=== PATIENT | female | born 1950 | race American Indian/Alaskan Native ===

== ENCOUNTER 2017-05-01 15:49 | Emergency (ER) | payer OTHER ==
[2017-05-01 16:25] VITALS: BP 154/98
--- NOTE | 2017-05-01 17:09 | EDM.PDOC ---
ED HPI GENERAL MEDICAL PROBLEM - General Chief Complaint: Abdominal Pain Stated Complaint: RT SIDED SEVERE PAINS, [id number] Time Seen by Provider: 05/01/17 16:45 Source of Information: Reports: Patient History Limitations: Reports: No Limitations - History of Present Illness INITIAL COMMENTS - FREE TEXT/NARRATIVE: This 67 yo female patient reports to the ED with right lower abdominal pain. The patient reports her pain started about 3 days ago and has been intermittent since that time. The patient reports increase pain when she walks. The patient does report that she was moving furniture on Sunday, just before the pain started. The patient reports she has been taking Tylenol for temporary symptom relief. The patient has not been seen by her primary care facility. 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 Right Lower Abdomen Pain Score (Numeric/FACES): 8 - Related Data Allergies Allergy/AdvReac Type Severity Reaction Status Date / Time chocolate flavor Allergy Hives Verified 05/01/17 16:07 diazepam [From Valium] Allergy Confusion Verified 05/01/17 16:07 diphenhydramine Allergy Confusion Verified 05/01/17 16:07 [From Benadryl] kiwi Allergy Blisters Verified 05/01/17 16:07 lisinopril [From Prinivil] Allergy Swollen Verified 05/01/17 16:07 Tongue metformin [From Glucophage] Allergy Cough Verified 05/01/17 16:07 pantoprazole Allergy Other Verified 05/01/17 16:07 pineapple Allergy Blisters Verified 05/01/17 16:07 BEE VENOM Allergy Swelling Uncoded 05/01/17 16:07 Home Meds: Home Meds Acetaminophen [Tylenol Extra Strength] 1,000 mg PO Q6H PRN 04/28/16 [History] Aspirin [Halfprin] 81 mg PO DAILY 04/28/16 [History] Calcium Citrate/Vitamin D3 [Calcium Citrate + D] 1 tab PO BIDMEALS 04/28/16 [ History] Cholecalciferol (Vitamin D3) [Vitamin D3] 1 cap PO DAILY 04/28/16 [History] Famotidine 20 mg PO BID 04/28/16 [History] Insulin Aspart [Novolog Flexpen] 10 units SQ TID 04/28/16 [History] Insulin Detemir [Levemir Flextouch] 45 unit SQ BEDTIME 04/28/16 [History] Isosorbide Mononitrate [Imdur] 30 mg PO DAILY 04/28/16 [History] Loratadine [Claritin] 10 mg PO DAILY 04/28/16 [History] Losartan [Cozaar] 100 mg PO DAILY 04/28/16 [History] Multivitamin [Multivitamins] 1 cap PO .EVERYOTHERDAY 04/28/16 [History] atorvaSTATin [Lipitor] 10 mg PO DAILY 04/28/16 [History] Past Medical History HEENT History: Reports: Cataract, Impaired Vision Other HEENT History: wears glasses Cardiovascular History: Reports: High Cholesterol, Hypertension Respiratory History: Reports: None Gastrointestinal History: Reports: GERD, Hiatal Hernia Other Gastrointestinal History: SCHATZKI'S RING 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 History: Reports: Chronic Renal Insuffiency 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: Musculoskeletal History: Reports: Other (See Below) Other Musculoskeletal History: FRACTURED LEFT ANKLE X3 Neurological History: Reports: None Psychiatric History: Reports: None Endocrine/Metabolic History: Reports: Diabetes, Type II Hematologic History: Reports: None Immunologic History: Reports: None Oncologic (Cancer) History: Reports: None Dermatologic History: Reports: None - Infectious Disease History Infectious Disease History: Reports: Chicken Pox, Measles, Mumps - Past Surgical History Head Surgeries/Procedures: Reports: None HEENT Surgical History: Reports: Cataract Surgery Cardiovascular Surgical History: Reports: Coronary Artery Stent GI Surgical History: Reports: EGD, Esophageal Dilatation Musculoskeletal Surgical History: Reports: Arthroscopic Knee Social & Family History - Family History Family Medical History: Noncontributory Cardiac: Reports: High Cholesterol, Hypertension, [place] : Reports: Dialysis Musculoskeletal: Reports: Arthritis Endocrine/Metabolic: Reports: Diabetes, type II Oncologic: Reports: Lung - Tobacco Use Smoking Status *Q: Never Smoker Second Hand Smoke Exposure: No - Caffeine Use Caffeine Use: Reports: Coffee - Recreational Drug Use Recreational Drug Use: No ED ROS GENERAL - Review of Systems Review Of Systems: ROS reveals no pertinent complaints other than HPI. ED EXAM, GI/ABD - Physical Exam Exam: See Below Exam Limited By: No Limitations General Appearance: Alert, WD/WN, Mild Distress, Obese Eyes: Bilateral: Normal Appearance, EOMI Ears: Normal External Exam, Normal Canal, Hearing Grossly Normal, Normal TMs Nose: Normal Inspection, Normal Mucosa, No Blood Throat/Mouth: Normal Inspection, Normal Lips, Normal Teeth, Normal Gums, Normal Oropharynx, Normal Voice, No Airway Compromise Head: Atraumatic, Normocephalic Neck: Normal Inspection, Supple, Non-Tender, Full Range of Motion Respiratory/Chest: No Respiratory Distress, Lungs Clear, Normal Breath Sounds, No Accessory Muscle Use, Chest Non-Tender Cardiovascular: Normal Peripheral Pulses, Regular Rate, Rhythm, No Edema, No Gallop, No JVD, No Murmur, No Rub GI/Abdominal Exam: Normal Bowel Sounds, Soft, Tender (right lower abdomen (very low into the right groin)), Other (no evidence of hernia) (Female) Exam: Deferred Rectal (Female) Exam: Deferred Back Exam: Normal Inspection, Full Range of Motion, NT Extremities: Normal Inspection, Normal Range of Motion, Non-Tender, Normal Capillary Refill, No Pedal Edema Neurological: Alert, Oriented, CN II-XII Intact, Normal Cognition, Normal Gait, Normal Reflexes, No Motor/Sensory Deficits Psychiatric: Normal Affect, Normal Mood Skin Exam: Warm, Dry, Intact, Normal Color, No Rash Lymphatic: No Adenopathy Course - Vital Signs Last Recorded V/S: Last Vital Signs Temp 36.2 C 05/01/17 16:22 Pulse 67 05/01/17 16:22 Resp 18 05/01/17 16:22 BP 154/98 H 05/01/17 16:22 Pulse Ox 100 05/01/17 16:22 - Orders/Labs/Meds Orders: Active Orders 24 hr Category Date Time Status UA W/MICROSCOPIC [URIN] Stat Lab 05/01/17 17:04 Received Orphenadrine [Norflex] Med 05/01/17 17:30 Ordered 60 mg IM Q12H Medication Orders Orphenadrine Citrate (Norflex) 60 mg IM Q12H RAMONA Labs: Laboratory Tests 05/01/17 05/01/17 05/01/17 Range/Units 16:39 16:39 16:39 WBC 6.3 (5.0-10.0) 10^3/uL RBC 4.26 (4.2-5.4) 10^6/uL Hgb 12.2 (12.0-16.0) g/dL Hct 36.5 L (37.0-47.0) % MCV 85.7 (80-100) fL MCH 28.6 (27.0-34.0) pg MCHC 33.4 (33.0-35.0) g/dL Plt Count 203 (150-450) 10^3/uL Neut % (Auto) 68.7 (42.2-75.2) % Lymph % (Auto) 20.4 L (20.5-50.1) % [place] % (Auto) 6.9 (2-8) % Eos % (Auto) 3.4 H (1.0-3.0) % Baso % (Auto) 0.6 (0.0-1.0) % Sodium 134 L (135-145) mmol/L Potassium 3.9 (3.6-5.0) mmol/L Chloride 98 L (101-111) mmol/L Carbon Dioxide 24.0 (21.0-31.0) mmol/L Anion Gap 15.9 BUN 21 H (7-18) mg/dL Creatinine 1.2 (0.6-1.3) mg/dL Est Cr Clr Drug Dosing 34.80 mL/min Estimated GFR (MDRD) 45 BUN/Creatinine Ratio 17.50 Glucose 186 H (74-105) mg/dL Calcium 9.3 D (8.4-10.2) mg/dl Total Bilirubin 0.7 (0.2-1.0) mg/dL AST 32 (10-42) IU/L ALT 31 (10-60) IU/L Alkaline Phosphatase 100 (42-121) IU/L Total Protein 7.8 (6.7-8.2) g/dl Albumin 3.7 (3.2-5.5) g/dl Globulin 4.1 Albumin/Globulin Ratio 0.90 Amylase 29 (28-100) U/L Lipase 27 (22-51) U/L Urine Opiates Screen (NEGATIVE) Ur Oxycodone Screen (NEGATIVE) Urine Methadone Screen (NEGATIVE) Ur Barbiturates Screen (NEGATIVE) U Tricyclic Antidepress (NEGATIVE) Ur Phencyclidine Scrn (NEGATIVE) Ur Amphetamine Screen (NEGATIVE) U Methamphetamines Scrn (NEGATIVE) Urine MDMA Screen (NEGATIVE) U Benzodiazepines Scrn (NEGATIVE) Urine Cocaine Screen (NEGATIVE) U Marijuana (THC) Screen (NEGATIVE) 05/01/17 Range/Units 17:04 WBC (5.0-10.0) 10^3/uL RBC (4.2-5.4) 10^6/uL Hgb (12.0-16.0) g/dL Hct (37.0-47.0) % MCV (80-100) fL MCH (27.0-34.0) pg MCHC (33.0-35.0) g/dL Plt Count (150-450) 10^3/uL Neut % (Auto) (42.2-75.2) % Lymph % (Auto) (20.5-50.1) % [place] % (Auto) (2-8) % Eos % (Auto) (1.0-3.0) % Baso % (Auto) (0.0-1.0) % Sodium (135-145) mmol/L Potassium (3.6-5.0) mmol/L Chloride (101-111) mmol/L Carbon Dioxide (21.0-31.0) mmol/L Anion Gap BUN (7-18) mg/dL Creatinine (0.6-1.3) mg/dL Est Cr Clr Drug Dosing mL/min Estimated GFR (MDRD) BUN/Creatinine Ratio Glucose (74-105) mg/dL Calcium (8.4-10.2) mg/dl Total Bilirubin (0.2-1.0) mg/dL AST (10-42) IU/L ALT (10-60) IU/L Alkaline Phosphatase (42-121) IU/L Total Protein (6.7-8.2) g/dl Albumin (3.2-5.5) g/dl Globulin Albumin/Globulin Ratio Amylase (28-100) U/L Lipase (22-51) U/L Urine Opiates Screen Negative (NEGATIVE) Ur Oxycodone Screen Negative (NEGATIVE) Urine Methadone Screen Negative (NEGATIVE) Ur Barbiturates Screen Negative (NEGATIVE) U Tricyclic Antidepress Negative (NEGATIVE) Ur Phencyclidine Scrn Negative (NEGATIVE) Ur Amphetamine Screen Negative (NEGATIVE) U Methamphetamines Scrn Negative (NEGATIVE) Urine MDMA Screen Negative (NEGATIVE) U Benzodiazepines Scrn Negative (NEGATIVE) Urine Cocaine Screen Negative (NEGATIVE) U Marijuana (THC) Screen Negative (NEGATIVE) Meds: Medications Generic Name Dose Route Start Last Admin Trade Name Freq PRN Reason Stop Dose Admin Orphenadrine Citrate 60 mg 05/01/17 17:30 Norflex IM Q12H RAMONA Discontinued Medications Generic Name Dose Route Start Last Admin Trade Name Trudy PRN Reason Stop Dose Admin Ketorolac Tromethamine 30 mg 05/01/17 17:26 Toradol IM 05/01/17 17:27 ONETIME ONE Departure - Departure Time of Disposition: 17:29 Disposition: Home, Self-Care 01 Condition: Fair Clinical Impression: Abdominal wall strain Qualifiers: Encounter type: initial encounter Qualified Code(s): S39.011A - Strain of muscle, fascia and tendon of abdomen, initial encounter - Discharge Information Instructions: Muscle Strain, [id number] Forms: ED Department Discharge Care Plan Goals: The patient was advised of the examination and lab results during the visit. The patient was given an injection of Toradol (60 mg) and Norflex (60 mg) while in the ED. The patient was discharged with a script for Toradol (10 mg) #20 to take 1 by mouth every 6 hours and Flexeril (10 mg) #10 to take 1 by mouth at bedtime as needed. The patient may continue to take Tylenol as directed for temporary symptom relief. If the patient has any additional symptoms or further concerns, the patient should either follow-up with her primary care facility or return to the emergency department. - My Orders Last 24 Hours: My Active Orders 05/01/17 17:04 UA W/MICROSCOPIC [URIN] Stat 05/01/17 17:30 Orphenadrine [Norflex] 60 mg IM Q12H - Assessment/Plan Last 24 Hours: My Active Orders 05/01/17 17:04 UA W/MICROSCOPIC [URIN] Stat 05/01/17 17:30 Orphenadrine [Norflex] 60 mg IM Q12H
[2017-05-01] MEDS ORDERED: Ketorolac 30 MG/ML SDV IM ONE (17:26)
== END 2017-05-01 17:26 | disposition home or self-care (01) ==
LOC: DL.ED 15:49
DX: S39.011A Strain of muscle, fascia and tendon of abdomen, initial encounter (principal); E78.00 Pure hypercholesterolemia, unspecified; I12.9 Hypertensive chronic kidney disease with stage 1 through stage 4 chronic kidney disease, or unspecified chronic kidney disease; N18.9 Chronic kidney disease, unspecified; E11.22 Type 2 diabetes mellitus with diabetic chronic kidney disease; K21.9 Gastro-esophageal reflux disease without esophagitis; Z88.8 Allergy status to other drugs, medicaments and biological substances; Z91.018 Allergy to other foods; Z91.030 Bee allergy status; Z79.899 Other long term (current) drug therapy; Z79.82 Long term (current) use of aspirin; X50.9XXA Other and unspecified overexertion or strenuous movements or postures, initial encounter
CPT/HCPCS: 36415; 80053; 80305; 81001; 82150; 83690; 85025; 96372; 99284; J1885; J2360

== ENCOUNTER 2019-01-22 00:03 | Emergency (ER) | payer OTHER ==
[2019-01-22 00:55] LABS: ANION GAP 13.9
[2019-01-22] MEDS ORDERED: Aspirin 81 MG Tab.Chew PO ONE (01:20)
[2019-01-22] MEDS ORDERED: Ondansetron 4 MG/2 ML SDV IV ONE (01:26)
--- NOTE | 2019-01-22 01:29 | EDM.PDOC ---
ED HPI GENERAL MEDICAL PROBLEM - General Chief Complaint: Chest Pain Stated Complaint: CHEST PAIN AND THROWING UP [id number] Time Seen by Provider: 01/22/19 00:25 Source of Information: Reports: Patient, Family History Limitations: Reports: No Limitations - History of Present Illness INITIAL COMMENTS - FREE TEXT/NARRATIVE: ED with c/o eating lettuce sald at 2130, 2200 started vomiting x 3 and 5 loose diarrhea stools left sided chest pain sharp jabbing type started after and burning in throat. No fever, No sweating, No blood in emesis or stool. No SOB. Hx 3 cardiac stents and 1 renal stent. Left Anterior Chest Pain Score (Numeric/FACES): 5 - Related Data Allergies Allergy/AdvReac Type Severity Reaction Status Date / Time chocolate flavor Allergy Hives Verified 01/22/19 00:33 diazepam [From Valium] Allergy Confusion Verified 01/22/19 00:33 diphenhydramine Allergy Confusion Verified 01/22/19 00:33 [From Benadryl] kiwi Allergy Blisters Verified 01/22/19 00:33 lisinopril [From Prinivil] Allergy Swollen Verified 01/22/19 00:33 Tongue metformin [From Glucophage] Allergy Cough Verified 01/22/19 00:33 pantoprazole Allergy Other Verified 01/22/19 00:33 pineapple Allergy Blisters Verified 01/22/19 00:33 BEE VENOM Allergy Swelling Uncoded 01/22/19 00:33 Home Meds: Home Meds Acetaminophen [Tylenol Extra Strength] 1,000 mg PO Q6H PRN 04/28/16 [History] Aspirin [Halfprin] 81 mg PO DAILY 04/28/16 [History] Calcium Citrate/Vitamin D3 [Calcium Citrate + D] 1 tab PO BIDMEALS 04/28/16 [ History] Cholecalciferol (Vitamin D3) [Vitamin D3] 1 cap PO DAILY 04/28/16 [History] Famotidine 20 mg PO BID 04/28/16 [History] Insulin Aspart [Novolog Flexpen] 10 units SQ TID 04/28/16 [History] Insulin Detemir [Levemir Flextouch] 45 unit SQ BEDTIME 04/28/16 [History] Isosorbide Mononitrate [Imdur] 30 mg PO DAILY 04/28/16 [History] Loratadine [Claritin] 10 mg PO DAILY 04/28/16 [History] Losartan [Cozaar] 100 mg PO DAILY 04/28/16 [History] Multivitamin [Multivitamins] 1 cap PO DAILY 04/28/16 [History] atorvaSTATin [Lipitor] 10 mg PO DAILY 04/28/16 [History] Clopidogrel [Plavix] 1 tab PO DAILY 05/14/17 [History] Ibuprofen [Advil] 800 mg PO TID 05/14/17 [History] Past Medical History HEENT History: Reports: Cataract, Impaired Vision Other HEENT History: wears glasses Cardiovascular History: Reports: High Cholesterol, Hypertension Respiratory History: Reports: None Gastrointestinal History: Reports: GERD, Hiatal Hernia Other Gastrointestinal History: SCHATZKI'S RING 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 History: Reports: Chronic Renal Insuffiency 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: Musculoskeletal History: Reports: Other (See Below) Other Musculoskeletal History: FRACTURED LEFT ANKLE X3 Neurological History: Reports: None Psychiatric History: Reports: None Endocrine/Metabolic History: Reports: Diabetes, Type II Hematologic History: Reports: None Immunologic History: Reports: None Oncologic (Cancer) History: Reports: None Dermatologic History: Reports: None - Infectious Disease History Infectious Disease History: Reports: Chicken Pox, Measles, Mumps - Past Surgical History Head Surgeries/Procedures: Reports: None HEENT Surgical History: Reports: Cataract Surgery Cardiovascular Surgical History: Reports: Coronary Artery Stent Other Cardiovascular Surgeries/Procedures: ELECTROCARDIOGRAM Respiratory Surgical History: Reports: None GI Surgical History: Reports: EGD, Esophageal Dilatation Neurological Surgical History: Reports: None Musculoskeletal Surgical History: Reports: Arthroscopic Knee Oncologic Surgical History: Reports: None Dermatological Surgical History: Reports: None Social & Family History - Family History Family Medical History: Noncontributory Cardiac: Reports: High Cholesterol, Hypertension, [place] : Reports: Dialysis Musculoskeletal: Reports: Arthritis Endocrine/Metabolic: Reports: Diabetes, type II Oncologic: Reports: Lung - Tobacco Use Smoking Status *Q: Never Smoker Second Hand Smoke Exposure: No - Caffeine Use Caffeine Use: Reports: Coffee - Recreational Drug Use Recreational Drug Use: No ED ROS GENERAL - Review of Systems Review Of Systems: ROS reveals no pertinent complaints other than HPI. ED EXAM, GENERAL - Physical Exam Exam: See Below Exam Limited By: No Limitations General Appearance: Alert, Mild Distress Eye Exam: Bilateral Eye: EOMI Ears: Normal External Exam Nose: Normal Inspection Throat/Mouth: Normal Inspection, Normal Lips, Normal Voice, No Airway Compromise Head: Atraumatic, Normocephalic Neck: Normal Inspection, Full Range of Motion. No: Lymphadenopathy (L), Lymphadenopathy (R) Respiratory/Chest: No Respiratory Distress, Lungs Clear, Normal Breath Sounds, Chest Non-Tender. No: Respiratory Distress, Crackles, Rales, Rhonchi, Wheezing Cardiovascular: Normal Peripheral Pulses, Regular Rate, Rhythm, No Edema GI/Abdominal: Normal Bowel Sounds, Soft. No: Tender Back Exam: Normal Inspection Extremities: Normal Inspection Neurological: Alert, Oriented, Normal Cognition, Normal Gait Psychiatric: Flat Affect Skin Exam: Warm, Dry, Intact, Normal Color Course - Vital Signs Last Recorded V/S: Last Vital Signs Temp 96.4 F 01/22/19 00:14 Pulse 88 01/22/19 00:14 Resp 14 01/22/19 00:14 BP 109/71 01/22/19 02:28 Pulse Ox 100 01/22/19 00:14 - Orders/Labs/Meds Orders: Active Orders 24 hr Category Date Time Status EKG 12 Lead [EKG Documentation Completion] [RC] STAT Care 01/22/19 00:19 Active EKG 12 Lead [EKG Documentation Completion] [RC] STAT Care 01/22/19 01:48 Active Labs: Laboratory Tests 01/22/19 01/22/19 01/22/19 Range/Units 00:18 00:25 00:25 WBC 8.7 (5.0-10.0) 10^3/uL RBC 5.13 (4.2-5.4) 10^6/uL Hgb 15.0 D (12.0-16.0) g/dL Hct 43.5 (37.0-47.0) % MCV 84.8 (80-100) fL MCH 29.2 (27.0-34.0) pg MCHC 34.5 (33.0-35.0) g/dL Plt Count 218 (150-450) 10^3/uL Neut % (Auto) 71.0 (42.2-75.2) % Lymph % (Auto) 19.9 L (20.5-50.1) % [place] % (Auto) 5.7 (2-8) % Eos % (Auto) 3.1 H (1.0-3.0) % Baso % (Auto) 0.3 (0.0-1.0) % PT (9.0-12.0) SEC INR (0.9-1.2) APTT (22.0-34.0) SEC Sodium 135 (135-145) mmol/L Potassium 3.9 (3.6-5.0) mmol/L Chloride 103 (101-111) mmol/L Carbon Dioxide 22.0 (21.0-31.0) mmol/L Anion Gap 13.9 BUN 22 H (7-18) mg/dL Creatinine 1.3 (0.6-1.3) mg/dL Est Cr Clr Drug Dosing 31.69 mL/min Estimated GFR (MDRD) 41 BUN/Creatinine Ratio 16.92 Glucose 181 H (74-105) mg/dL POC Glucose 177 H (70-105) mg/dl Calcium 9.6 (8.4-10.2) mg/dl Total Bilirubin 0.8 (0.2-1.0) mg/dL AST 72 H (10-42) IU/L ALT 78 H (10-60) IU/L Alkaline Phosphatase 155 H (42-121) IU/L Troponin I 0.37 H* (0.00-0.02) ng/ml B-Natriuretic Peptide 65 (0-100) pg/ml Total Protein 8.4 H (6.7-8.2) g/dl Albumin 4.2 (3.2-5.5) g/dl Globulin 4.2 Albumin/Globulin Ratio 1.00 01/22/19 Range/Units 00:25 WBC (5.0-10.0) 10^3/uL RBC (4.2-5.4) 10^6/uL Hgb (12.0-16.0) g/dL Hct (37.0-47.0) % MCV (80-100) fL MCH (27.0-34.0) pg MCHC (33.0-35.0) g/dL Plt Count (150-450) 10^3/uL Neut % (Auto) (42.2-75.2) % Lymph % (Auto) (20.5-50.1) % Lyon % (Auto) (2-8) % Eos % (Auto) (1.0-3.0) % Baso % (Auto) (0.0-1.0) % PT 9.1 (9.0-12.0) SEC INR 0.9 (0.9-1.2) APTT 24.8 (22.0-34.0) SEC Sodium (135-145) mmol/L Potassium (3.6-5.0) mmol/L Chloride (101-111) mmol/L Carbon Dioxide (21.0-31.0) mmol/L Anion Gap BUN (7-18) mg/dL Creatinine (0.6-1.3) mg/dL Est Cr Clr Drug Dosing mL/min Estimated GFR (MDRD) BUN/Creatinine Ratio Glucose (74-105) mg/dL POC Glucose (70-105) mg/dl Calcium (8.4-10.2) mg/dl Total Bilirubin (0.2-1.0) mg/dL AST (10-42) IU/L ALT (10-60) IU/L Alkaline Phosphatase (42-121) IU/L Troponin I (0.00-0.02) ng/ml B-Natriuretic Peptide (0-100) pg/ml Total Protein (6.7-8.2) g/dl Albumin (3.2-5.5) g/dl Globulin Albumin/Globulin Ratio Meds: Medications Discontinued Medications Generic Name Dose Route Start Last Admin Trade Name Freq PRN Reason Stop Dose Admin Aspirin 324 mg 01/22/19 01:20 01/22/19 01:31 Aspirin PO 01/22/19 01:21 324 mg ONETIME ONE Administration Clopidogrel Bisulfate 600 mg 01/22/19 02:21 01/22/19 02:25 Plavix PO 01/22/19 02:22 600 mg ONETIME ONE Administration Heparin Sodium (Porcine) 4,000 units 01/22/19 02:00 01/22/19 02:17 Heparin Sodium IVPUSH 01/22/19 02:01 4,000 units .BOLUS ONE Administration Sodium Chloride 1,000 mls @ 50 mls/hr 01/22/19 01:45 01/22/19 02:34 Normal Saline IV 450 mls/hr ASDIRECTED RAMONA Infusion Heparin Sodium/Sodium Chloride 25,000 units in 500 mls @ 17.724 mls/hr 02:00 01/22/19 02:21 Heparin 25,000 Units In 1/2 Ns 500 Ml IV 12 units/kg/hr TITRATE RAMONA 17.724 mls/hr Administration Protocol 12 UNITS/KG/HR Nitroglycerin 0.4 mg 01/22/19 01:21 01/22/19 02:28 Nitrostat SL 01/22/19 01:22 0.4 mg ONETIME ONE Administration Ondansetron HCl 4 mg 01/22/19 01:26 01/22/19 01:36 Zofran IV 01/22/19 01:27 4 mg ONETIME ONE Administration - Radiology Interpretation Free Text/Narrative:: [facility] Final Radiology Report Call: [phone] assistance Online chat: [email or web address] Name: PRATIBHA ROLDAN Age: 68Years F Date: 01/22/2019 SSN: -- : 1950 Study: XR CHEST 1 VIEW FRONTAL Requesting Physician: MARLA TREJO Images: 1 Addl Studies: Provided Clinical History: Contrast: Contrast Medium: Contrast Amount: Contrast Method: CONFIDENTIALITY STATEMENT This report is intended only for use by the referring physician, and only in accordance with law. If you received this in error, call [phone]. Page 1 of 1 EXAM: XR Chest, 1 View EXAM DATE/TIME: 01/22/2019 12:44 AM CLINICAL HISTORY: 68 years old, female; Chest pain; Type not specified TECHNIQUE: Imaging protocol: XR of the chest, 1 view. COMPARISON: CR Chest 2V 09/19/2016 3:56 PM FINDINGS: Lungs: Clear lungs. Pleural space: No pneumothorax. No sizable pleural effusion. Heart/Mediastinum: No cardiomegaly. Bones/joints: Unremarkable. IMPRESSION: Clear lungs. Thank you for allowing us to participate in the care of your patient. Dictated and Authenticated by: Yonis Pérez MD 01/22/2019 1:46 AM Central Time ([place] & [place]) - Re-Assessments/Exams Free Text/Narrative Re-Assessment/Exam: 01/22/19 05:[address] Foster and Dr Ragsdale. Elevation V6 partial V5 without reciprocal changes. Accept in Tx Tx via LRAS. Stable condition. Nitro x 3 total for relief of intermittent chest pain and burning in throat. No pain at time of transfer. Departure - Departure Time of Disposition: 03:05 Disposition: DC/Tfer to Acute Hospital 02 Reason for Transfer *Q: Other Condition: Undetermined Clinical Impression: NSTEMI (non-ST elevated myocardial infarction) Referrals: PCP,Unobtain [Primary Care Provider] - Forms: ED Department Discharge - My Orders Last 24 Hours: My Active Orders 01/22/19 00:19 EKG 12 Lead [EKG Documentation Completion] [RC] STAT 01/22/19 01:48 EKG 12 Lead [EKG Documentation Completion] [RC] STAT - Assessment/Plan Last 24 Hours: My Active Orders 01/22/19 00:19 EKG 12 Lead [EKG Documentation Completion] [RC] STAT 01/22/19 01:48 EKG 12 Lead [EKG Documentation Completion] [RC] STAT
[2019-01-22] MEDS: Nitroglycerin 0.4 MG Tab.SL SL ONE ×3 (01:37→02:28)
[2019-01-22] MEDS ORDERED: Sodium Chloride 0.9% 1,000 ML IV SCH (01:45)
[2019-01-22] MEDS ORDERED: Heparin Sodium/0.45% NaCl 25,000 UNITS/500 ML BAG IV SCH (02:00)
[2019-01-22] MEDS ORDERED: Heparin Sodium 5,000 Units/ML Vial IVPUSH ONE (02:00)
[2019-01-22] MEDS ORDERED: Clopidogrel 75 MG Tab PO ONE (02:21)
[2019-01-22 02:29] VITALS: BP 109/71
== END 2019-01-22 02:50 ==
LOC: DL.ED 00:03
DX: I21.4 Non-ST elevation (NSTEMI) myocardial infarction (principal); I12.9 Hypertensive chronic kidney disease with stage 1 through stage 4 chronic kidney disease, or unspecified chronic kidney disease; N18.9 Chronic kidney disease, unspecified; E78.00 Pure hypercholesterolemia, unspecified; K21.9 Gastro-esophageal reflux disease without esophagitis; E11.22 Type 2 diabetes mellitus with diabetic chronic kidney disease; Z88.8 Allergy status to other drugs, medicaments and biological substances; Z88.5 Allergy status to narcotic agent; Z91.030 Bee allergy status; Z79.82 Long term (current) use of aspirin; Z79.899 Other long term (current) drug therapy; Z79.4 Long term (current) use of insulin
CPT/HCPCS: 36415; 71045; 80053; 82962; 83880; 84484; 85025; 85610; 85730; 93005; 96365; 96375; 96376; 99285-25; A9270-GY; J1644; J2405; J7030

== ENCOUNTER 2019-05-10 14:07 | Emergency (ER) | payer OTHER ==
[2019-05-10] MEDS ORDERED: Sodium Chloride 0.9% 10 ML Syringe FLUSH PRN (14:20)
[2019-05-10] MEDS ORDERED: Aspirin 81 MG Tab.Chew PO ONE (14:20)
[2019-05-10 14:22] VITALS: BP 151/65; PULSE 70
[2019-05-10 15:08] LABS: ANION GAP 14.2
--- NOTE | 2019-05-10 15:42 | EDM.PDOC ---
Scribed by Kelly Bailey 05/10/19 [id number] for Eula Harvey MD ED HPI GENERAL MEDICAL PROBLEM - General Chief Complaint: Chest Pain Stated Complaint: CHEST PAINS Time Seen by Provider: 05/10/19 14:20 Source of Information: Reports: Patient, RN, RN Notes Reviewed History Limitations: Reports: No Limitations - History of Present Illness INITIAL COMMENTS - FREE TEXT/NARRATIVE: Patient presents to ER via POV with chest pain that started worsening last night. She had triple by pass in January. Since her bypass she reports frequent/ recurrent episodes of similar pain and goes across her chest. Pt states she told her "heart doctor" about the pains and was told it was nothing to worry about. She was slightly lightheaded this morning as well. Currently the pt states she is pain free. She took 1 baby ASA prior to arrival. She does not have nitro at home. She states it feels like tightness and burning. Denies cough , fever, chills, wheezing, orthopnea, edema, or nausea. Pt states she just got custody of her 4yr old granddaughter and is home alone with the child so she wanted to make sure that her heart was ok today. Pt's medical record shows that her Troponin has been steady at 0.04 since her CABG in January 2019. Onset Date: 05/09/19 Duration: Chronic, Recurring Location: Reports: Chest Quality: Reports: Burning, Pressure Severity: Severe Improves with: Reports: None Worsens with: Reports: None Associated Symptoms: Reports: No Other Symptoms Chest Pain Score (Numeric/FACES): 6 - Related Data Allergies Allergy/AdvReac Type Severity Reaction Status Date / Time chocolate flavor Allergy Hives Verified 05/10/19 14:32 diazepam [From Valium] Allergy Confusion Verified 05/10/19 14:32 diphenhydramine Allergy Confusion Verified 05/10/19 14:32 [From Benadryl] kiwi Allergy Blisters Verified 05/10/19 14:32 lisinopril [From Prinivil] Allergy Swollen Verified 05/10/19 14:32 Tongue metformin [From Glucophage] Allergy Cough Verified 05/10/19 14:32 pantoprazole Allergy Other Verified 05/10/19 14:32 pineapple Allergy Blisters Verified 05/10/19 14:32 BEE VENOM Allergy Swelling Uncoded 05/10/19 14:32 Home Meds: Home Meds Acetaminophen [Tylenol Extra Strength] 1,000 mg PO Q6H PRN 04/28/16 [History] Aspirin [Halfprin] 81 mg PO DAILY 04/28/16 [History] Calcium Citrate/Vitamin D3 [Calcium Citrate + D] 1 tab PO DAILY 04/28/16 [ History] Cholecalciferol (Vitamin D3) [Vitamin D3] 1,000 units PO DAILY 04/28/16 [History ] Insulin Aspart [Novolog Flexpen] 14 units SQ ASDIRECTED 04/28/16 [History] Insulin Detemir [Levemir Flextouch] 45 unit SQ BEDTIME 04/28/16 [History] Loratadine [Claritin] 10 mg PO DAILY 04/28/16 [History] Multivitamin [Multivitamins] 1 cap PO DAILY 04/28/16 [History] atorvaSTATin [Lipitor] 40 mg PO BEDTIME 04/28/16 [History] Docusate Sodium 200 mg PO BID PRN 03/12/19 [History] Ferrous Sulfate 325 mg PO BID 03/12/19 [History] Metoprolol Tartrate 12.5 mg PO BID 03/12/19 [History] Omeprazole 20 mg PO DAILY 03/12/19 [History] Saxagliptin HCl [Onglyza] 50 mg PO DAILY 03/12/19 [History] Past Medical History HEENT History: Reports: Cataract, Impaired Vision Other HEENT History: wears glasses Cardiovascular History: Reports: CAD, High Cholesterol, Hypertension, [place] Respiratory History: Reports: None Gastrointestinal History: Reports: GERD, Hiatal Hernia Other Gastrointestinal History: SCHATZKI'S RING 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 History: Reports: Chronic Renal Insuffiency Other 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 History: 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: Musculoskeletal History: Reports: Other (See Below) Other Musculoskeletal History: FRACTURED LEFT ANKLE X3 Neurological History: Reports: None Psychiatric History: Reports: None Endocrine/Metabolic History: Reports: Diabetes, Type II Hematologic History: Reports: None Immunologic History: Reports: None Oncologic (Cancer) History: Reports: None Dermatologic History: Reports: None - Infectious Disease History Infectious Disease History: Reports: Chicken Pox, Measles, Mumps - Past Surgical History Head Surgeries/Procedures: Reports: None HEENT Surgical History: Reports: Cataract Surgery Cardiovascular Surgical History: Reports: Coronary Artery Bypass, Coronary Artery Stent Other Cardiovascular Surgeries/Procedures: ELECTROCARDIOGRAM Respiratory Surgical History: Reports: None GI Surgical History: Reports: EGD, Esophageal Dilatation Neurological Surgical History: Reports: None Musculoskeletal Surgical History: Reports: Arthroscopic Knee Oncologic Surgical History: Reports: None Dermatological Surgical History: Reports: None Social & Family History - Family History Family Medical History: Noncontributory Cardiac: Reports: High Cholesterol, Hypertension, [place] : Reports: Dialysis Musculoskeletal: Reports: Arthritis Endocrine/Metabolic: Reports: Diabetes, type II Oncologic: Reports: Lung - Caffeine Use Caffeine Use: Reports: Coffee - Living Situation & Occupation Living situation: Reports: with Family Occupation: Retired ED ROS GENERAL - Review of Systems Review Of Systems: ROS reveals no pertinent complaints other than HPI. ED EXAM, GENERAL - Physical Exam Exam: See Below Exam Limited By: No Limitations General Appearance: Alert, WD/WN, No Apparent Distress, Anxious Eye Exam: Bilateral Eye: Normal Inspection Nose: Normal Inspection Throat/Mouth: Normal Inspection, Normal Lips, Normal Voice, No Airway Compromise Head: Atraumatic, Normocephalic Neck: Normal Inspection, Supple, Non-Tender, Full Range of Motion Respiratory/Chest: No Respiratory Distress, Lungs Clear, Normal Breath Sounds, No Accessory Muscle Use, Chest Non-Tender Cardiovascular: Regular Rate, Rhythm, No Edema, No JVD, No Murmur GI/Abdominal: Normal Bowel Sounds, Soft, Non-Tender, No Organomegaly, No Distention, No Abnormal Bruit, No Mass Back Exam: Normal Inspection Extremities: Normal Inspection, Normal Range of Motion, Non-Tender, Normal Capillary Refill, No Pedal Edema Neurological: Alert, Oriented, CN II-XII Intact, Normal Cognition, Normal Gait, No Motor/Sensory Deficits Psychiatric: Anxious Skin Exam: Warm, Dry, Intact, Normal Color, No Rash EKG INTERPRETATION EKG Date: 05/10/19 Time: 14:16 Rhythm: Other (sinus rhythm) Rate (Beats/Min): 71 [place]: Normal P-Wave: Present QRS: Other (inferior Q waves) ST-T: Elevated (nonspecific T wave abnormalities in lateral leads) QT: Normal Comparison: No Change Course - Vital Signs Last Recorded V/S: Last Vital Signs Temp 97.2 F 05/10/19 14:18 Pulse 70 05/10/19 14:18 Resp 12 05/10/19 14:18 BP 151/65 H 05/10/19 14:18 Pulse Ox 100 05/10/19 14:18 Orthostatic Blood Pressure [ 146/82 Standing] Orthostatic Blood Pressure [ 154/78 Sitting] Orthostatic Blood Pressure [ 140/68 Supine] Not orthostatic. - Orders/Labs/Meds Orders: Active Orders 24 hr Category Date Time Status EKG 12 Lead [EKG Documentation Completion] [RC] STAT Care 05/10/19 14:20 Active Orthostatic Vital Signs [RC] ASDIRECTED Care 05/10/19 15:25 Active Peripheral IV Care [RC] . DIRECTED Care 05/10/19 14:20 Active Chest 1V Frontal [CR] Stat Exams 05/10/19 14:20 Taken Sodium Chloride 0.9% [Saline Flush] Med 05/10/19 14:20 Active 10 ml FLUSH ASDIRECTED PRN Peripheral IV Insertion Adult [OM.PC] Stat Oth 05/10/19 14:20 Ordered Medication Orders Sodium Chloride (Saline Flush) 10 ml FLUSH ASDIRECTED PRN PRN Reason: Keep Vein Open Last Admin: 05/10/19 14:28 Dose: 10 ml Labs: Laboratory Tests 05/10/19 05/10/19 Range/Units 14:34 14:34 WBC 5.8 (5.0-10.0) 10^3/uL RBC 4.46 (4.2-5.4) 10^6/uL Hgb 12.5 (12.0-16.0) g/dL Hct 37.7 (37.0-47.0) % MCV 84.5 (80-100) fL MCH 28.0 (27.0-34.0) pg MCHC 33.2 (33.0-35.0) g/dL Plt Count 259 (150-450) 10^3/uL Neut % (Auto) 76.6 H (42.2-75.2) % Lymph % (Auto) 16.1 L (20.5-50.1) % [place] % (Auto) 4.2 (2-8) % Eos % (Auto) 2.8 (1.0-3.0) % Baso % (Auto) 0.3 (0.0-1.0) % Sodium 134 L (135-145) mmol/L Potassium 4.2 (3.6-5.0) mmol/L Chloride 99 L (101-111) mmol/L Carbon Dioxide 25.0 (21.0-31.0) mmol/L Anion Gap 14.2 BUN 17 (7-18) mg/dL Creatinine 1.1 (0.6-1.3) mg/dL Est Cr Clr Drug Dosing 36.94 mL/min Estimated GFR (MDRD) 49 BUN/Creatinine Ratio 15.45 Glucose 241 H (74-105) mg/dL Calcium 9.1 (8.4-10.2) mg/dl Total Bilirubin 0.8 (0.2-1.0) mg/dL AST 28 (10-42) IU/L ALT 19 (10-60) IU/L Alkaline Phosphatase 109 (42-121) IU/L Troponin I 0.04 H* (0.00-0.02) ng/ml B-Natriuretic Peptide 82 (0-100) pg/ml Total Protein 7.5 (6.7-8.2) g/dl Albumin 3.8 (3.2-5.5) g/dl Globulin 3.7 Albumin/Globulin Ratio 1.03 Lipase 39 (22-51) U/L Meds: Medications Generic Name Dose Route Start Last Admin Trade Name Freq PRN Reason Stop Dose Admin Sodium Chloride 10 ml 05/10/19 14:20 05/10/19 14:28 Saline Flush FLUSH 10 ml ASDIRECTED PRN Administration Keep Vein Open Discontinued Medications Generic Name Dose Route Start Last Admin Trade Name Freq PRN Reason Stop Dose Admin Aspirin 324 mg 05/10/19 14:20 05/10/19 14:27 Aspirin PO 05/10/19 14:21 324 mg ONETIME ONE Administration - Radiology Interpretation Free Text/Narrative:: [facility] Final Radiology Report Call: [phone] assistance Online chat: [email or web address] Name: PRATIBHA ROLDAN Age: 69Years F Date: 05/10/2019 SSN: -- : [id number] Study: XR CHEST 1 VIEW FRONTAL Requesting Physician: EULA HARVEY Images: 1 Addl Studies: Provided Clinical History: Contrast: Contrast Medium: Contrast Amount: Contrast Method: CONFIDENTIALITY STATEMENT This report is intended only for use by the referring physician, and only in accordance with law. If you received this in error, call [phone]. Page 1 of 1 PROCEDURE INFORMATION: Exam: XR Chest, 1 View Exam date and time: 05/10/2019 2:48 PM Clinical history: 69 years old, female; Other: Chest pain TECHNIQUE: Imaging protocol: XR of the chest Views: 1 view. COMPARISON: CR Chest 1V Frontal 03/12/2019 11:42 AM FINDINGS: Lungs: Nonspecific bibasilar consolidation is present, consistent with atelectasis, edema, or pneumonia. Pleural space: Unremarkable. No pleural effusion. No pneumothorax. Heart/Mediastinum: The heart demonstrates mild diffuse enlargement. Bones/joints: There are sternal wires consistent with previous sternotomy incision. The thoracic spine demonstrates mild degenerative changes at multiple levels. IMPRESSION: Nonspecific bibasilar consolidation is present, consistent with atelectasis, edema, or pneumonia. Thank you for allowing us to participate in the care of your patient. Dictated and Authenticated by: Danis Curtis DO 05/10/2019 3:00 PM Central Time ([place] & [place]) Departure - Departure Time of Disposition: 15:40 Disposition: Home, Self-Care 01 Condition: Good (dizziness) Clinical Impression: Dizziness, Atypical chest pain Instructions: Dizziness, Nonspecific Chest Pain, [id number] Forms: ED Department Discharge Additional Instructions: Continue your current medications as prescribed. Follow up in clinic for a Life Alert necklace or wrist band to push in case you have an emergency when you are alone. - My Orders Last 24 Hours: My Active Orders 05/10/19 14:20 EKG 12 Lead [EKG Documentation Completion] [RC] STAT Peripheral IV Care [RC] . DIRECTED Chest 1V Frontal [CR] Stat Sodium Chloride 0.9% [Saline Flush] 10 ml FLUSH ASDIRECTED PRN Peripheral IV Insertion Adult [OM.PC] Stat 05/10/19 15:25 Orthostatic Vital Signs [RC] ASDIRECTED - Assessment/Plan Last 24 Hours: My Active Orders 05/10/19 14:20 EKG 12 Lead [EKG Documentation Completion] [RC] STAT Peripheral IV Care [RC] . DIRECTED Chest 1V Frontal [CR] Stat Sodium Chloride 0.9% [Saline Flush] 10 ml FLUSH ASDIRECTED PRN Peripheral IV Insertion Adult [OM.PC] Stat 05/10/19 15:25 Orthostatic Vital Signs [RC] ASDIRECTED I have read and agree with the documentation that has been completed regarding this visit. By signing this record, I attest that the documentation was completed in my physical presence and is an accurate record of the encounter.
== END 2019-05-10 16:28 | disposition home or self-care (01) ==
LOC: DL.ED 14:07
DX: R07.89 Other chest pain (principal); R42 Dizziness and giddiness; I13.10 Hypertensive heart and chronic kidney disease without heart failure, with stage 1 through stage 4 chronic kidney disease, or unspecified chronic kidney disease; E11.22 Type 2 diabetes mellitus with diabetic chronic kidney disease; N18.9 Chronic kidney disease, unspecified; K21.9 Gastro-esophageal reflux disease without esophagitis; I25.10 Atherosclerotic heart disease of native coronary artery without angina pectoris; I25.2 Old myocardial infarction; Z91.018 Allergy to other foods; Z88.8 Allergy status to other drugs, medicaments and biological substances; E78.00 Pure hypercholesterolemia, unspecified; Z79.82 Long term (current) use of aspirin; Z79.4 Long term (current) use of insulin; Z79.899 Other long term (current) drug therapy
CPT/HCPCS: 36415; 71045; 80053; 83690; 83880; 84484; 85025; 93005; 99285; A9270

== ENCOUNTER 2019-08-05 17:50 | Emergency (ER) | payer OTHER ==
[2019-08-05 18:05] VITALS: BP 130/79; PULSE 79
[2019-08-05 18:39] LABS: CHLORIDE,CL 97 mmol/L (101-111); SODIUM,NA 132 mmol/L (135-145)
--- NOTE | 2019-08-05 18:59 | EDM.PDOC ---
<YostVladimir M - Last Filed: 08/05/19 18:53> ED HPI GENERAL MEDICAL PROBLEM - General Chief Complaint: Chest Pain Stated Complaint: CHEST PAINS Time Seen by Provider: 08/05/19 18:48 Source of Information: Reports: Patient History Limitations: Reports: No Limitations - History of Present Illness INITIAL COMMENTS - FREE TEXT/NARRATIVE: This 69 yo female patient reports to the ED with left sided chest pain that started yesterday. The patient reports increased pain with deep breathing. The patient denies any falls or trauma to the area. The patient reports she noticed the pain after coughing. The patient locates the pain under her left breast, but she is not able to push on the area to increase the pain. 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 Left Chest Pain Score (Numeric/FACES): 6 - Related Data Allergies Allergy/AdvReac Type Severity Reaction Status Date / Time chocolate flavor Allergy Hives Verified 08/05/19 17:58 diazepam [From Valium] Allergy Confusion Verified 08/05/19 17:58 diphenhydramine Allergy Confusion Verified 08/05/19 17:58 [From Benadryl] kiwi Allergy Blisters Verified 08/05/19 17:58 lisinopril [From Prinivil] Allergy Swollen Verified 08/05/19 17:58 Tongue metformin [From Glucophage] Allergy Cough Verified 08/05/19 17:58 pantoprazole Allergy Other Verified 08/05/19 17:58 pineapple Allergy Blisters Verified 08/05/19 17:58 BEE VENOM Allergy Swelling Uncoded 08/05/19 17:58 Home Meds: Home Meds Acetaminophen [Tylenol Extra Strength] 1,000 mg PO Q6H PRN 04/28/16 [History] Aspirin [Halfprin] 81 mg PO DAILY 04/28/16 [History] Calcium Citrate/Vitamin D3 [Calcium Citrate + D] 1 tab PO DAILY 04/28/16 [ History] Cholecalciferol (Vitamin D3) [Vitamin D3] 1,000 units PO DAILY 04/28/16 [History ] Insulin Aspart [Novolog Flexpen] 14 units SQ ASDIRECTED 04/28/16 [History] Insulin Detemir [Levemir Flextouch] 45 unit SQ BEDTIME 04/28/16 [History] Loratadine [Claritin] 10 mg PO DAILY 04/28/16 [History] Multivitamin [Multivitamins] 1 cap PO DAILY 04/28/16 [History] atorvaSTATin [Lipitor] 40 mg PO BEDTIME 04/28/16 [History] Docusate Sodium 200 mg PO BID PRN 03/12/19 [History] Ferrous Sulfate 325 mg PO BID 03/12/19 [History] Metoprolol Tartrate 12.5 mg PO BID 03/12/19 [History] Omeprazole 20 mg PO DAILY 03/12/19 [History] Saxagliptin HCl [Onglyza] 5 mg PO DAILY 03/12/19 [History] traMADol [Ultram] 50 mg PO Q8H PRN 08/05/19 [History] Past Medical History HEENT History: Reports: Cataract, Impaired Vision Other HEENT History: wears glasses Cardiovascular History: Reports: CAD, High Cholesterol, Hypertension, [place] Respiratory History: Reports: None Gastrointestinal History: Reports: GERD, Hiatal Hernia Other Gastrointestinal History: SCHATZKI'S RING 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 History: Reports: Chronic Renal Insuffiency Other 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 History: 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: Musculoskeletal History: Reports: Other (See Below) Other Musculoskeletal History: FRACTURED LEFT ANKLE X3 Neurological History: Reports: None Psychiatric History: Reports: None Endocrine/Metabolic History: Reports: Diabetes, Type II Hematologic History: Reports: None Immunologic History: Reports: None Oncologic (Cancer) History: Reports: None Dermatologic History: Reports: None - Infectious Disease History Infectious Disease History: Reports: Chicken Pox, Measles, Mumps - Past Surgical History Head Surgeries/Procedures: Reports: None HEENT Surgical History: Reports: Cataract Surgery Cardiovascular Surgical History: Reports: Coronary Artery Bypass, Coronary Artery Stent Other Cardiovascular Surgeries/Procedures: ELECTROCARDIOGRAM Respiratory Surgical History: Reports: None GI Surgical History: Reports: EGD, Esophageal Dilatation Neurological Surgical History: Reports: None Musculoskeletal Surgical History: Reports: Arthroscopic Knee Oncologic Surgical History: Reports: None Dermatological Surgical History: Reports: None Social & Family History - Family History Family Medical History: Noncontributory Cardiac: Reports: High Cholesterol, Hypertension, [place] : Reports: Dialysis Musculoskeletal: Reports: Arthritis Endocrine/Metabolic: Reports: Diabetes, type II Oncologic: Reports: Lung - Tobacco Use Smoking Status *Q: Never Smoker Second Hand Smoke Exposure: Yes - Caffeine Use Caffeine Use: Reports: Coffee - Recreational Drug Use Recreational Drug Use: No - Living Situation & Occupation Living situation: Reports: with Family Occupation: Retired ED ROS GENERAL - Review of Systems Review Of Systems: Comprehensive ROS is negative, except as noted in HPI. ED EXAM, GENERAL - Physical Exam Exam: See Below Exam Limited By: No Limitations General Appearance: Alert, WD/WN, Moderate Distress Eye Exam: Bilateral Eye: EOMI, Normal Inspection, PERRL Ears: Normal External Exam, Normal Canal, Hearing Grossly Normal, Normal TMs Nose: Normal Inspection, Normal Mucosa, No Blood Throat/Mouth: Normal Inspection, Normal Lips, Normal Teeth, Normal Gums, Normal Oropharynx, Normal Voice, No Airway Compromise Head: Atraumatic, Normocephalic Neck: Normal Inspection, Supple, Non-Tender, Full Range of Motion Respiratory/Chest: No Respiratory Distress, Lungs Clear, Normal Breath Sounds, No Accessory Muscle Use, Other (left chest wall tenderness) Cardiovascular: Normal Peripheral Pulses, Regular Rate, Rhythm, No Edema, No Gallop, No JVD, No Murmur, No Rub GI/Abdominal: Normal Bowel Sounds, Soft, Non-Tender, No Organomegaly, No Distention, No Abnormal Bruit, No Mass (Female) Exam: Deferred Rectal (Female) Exam: Deferred Extremities: Normal Inspection, Normal Range of Motion, Non-Tender, Normal Capillary Refill, No Pedal Edema Neurological: Alert, Oriented, CN II-XII Intact, Normal Cognition, Normal Gait, Normal Reflexes, No Motor/Sensory Deficits Psychiatric: Normal Affect, Normal Mood Skin Exam: Warm, Dry, Intact, Normal Color, No Rash Lymphatic: No Adenopathy Course - Vital Signs Last Recorded V/S: Last Vital Signs Temp 98.4 F 08/05/19 18:04 Pulse 79 08/05/19 18:04 Resp 17 08/05/19 18:04 BP 130/79 08/05/19 18:04 Pulse Ox 97 08/05/19 18:04 - Orders/Labs/Meds Orders: Active Orders 24 hr Category Date Time Status EKG Documentation Completion [RC] STAT Care 08/05/19 18:20 Active Chest 1V Frontal [CR] Urgent Exams 08/05/19 18:20 Taken Labs: Laboratory Tests 08/05/19 08/05/19 Range/Units 18:09 18:09 WBC 7.2 (5.0-10.0) 10^3/uL RBC 4.17 L (4.2-5.4) 10^6/uL Hgb 12.6 (12.0-16.0) g/dL Hct 36.1 L (37.0-47.0) % MCV 86.6 (80-100) fL MCH 30.2 (27.0-34.0) pg MCHC 34.9 (33.0-35.0) g/dL Plt Count 220 (150-450) 10^3/uL Neut % (Auto) 72.8 (42.2-75.2) % Lymph % (Auto) 15.5 L (20.5-50.1) % [place] % (Auto) 9.9 H (2-8) % Eos % (Auto) 1.7 (1.0-3.0) % Baso % (Auto) 0.1 (0.0-1.0) % Sodium 132 L (135-145) mmol/L Potassium 4.0 (3.6-5.0) mmol/L Chloride 97 L (101-111) mmol/L Carbon Dioxide 23.0 (21.0-31.0) mmol/L Anion Gap 16.0 BUN 14 (7-18) mg/dL Creatinine 1.0 (0.6-1.3) mg/dL Est Cr Clr Drug Dosing 40.63 mL/min Estimated GFR (MDRD) 55 BUN/Creatinine Ratio 14.00 Glucose 293 H (74-105) mg/dL Calcium 9.1 (8.4-10.2) mg/dl Total Bilirubin 0.6 (0.2-1.0) mg/dL AST 20 (10-42) IU/L ALT 17 (10-60) IU/L Alkaline Phosphatase 92 (42-121) IU/L Troponin I < 0.02 (0.00-0.02) ng/ml Total Protein 7.5 (6.7-8.2) g/dl Albumin 3.8 (3.2-5.5) g/dl Globulin 3.7 Albumin/Globulin Ratio 1.03 Departure - Departure Disposition: Home, Self-Care 01 Clinical Impression: Pleuritic chest pain Forms: ED Department Discharge Additional Instructions: light activity bland diet tylenol every 4-6 hours as needed for discomfort warm pack to chest area follow up as needed Sepsis Event Note - Evaluation Sepsis Screening Result: No Definite Risk - Focused Exam Vital Signs: Vital Signs Temp Pulse Resp BP Pulse Ox 08/05/19 18:04 98.4 F 79 17 130/79 97 Date Exam was Performed: 08/05/19 Time Exam was Performed: 18:53 <Bell Fischer - Last Filed: 08/05/19 20:17> Departure - Departure Time of Disposition: 20:14 Condition: Good Sepsis Event Note - Focused Exam Date Exam was Performed: 08/05/19 Time Exam was Performed: 20:14
== END 2019-08-05 20:26 | disposition home or self-care (01) ==
LOC: DL.ED 17:50
DX: R07.81 Pleurodynia (principal); I25.2 Old myocardial infarction; E11.22 Type 2 diabetes mellitus with diabetic chronic kidney disease; I12.9 Hypertensive chronic kidney disease with stage 1 through stage 4 chronic kidney disease, or unspecified chronic kidney disease; N18.9 Chronic kidney disease, unspecified; Z79.82 Long term (current) use of aspirin; Z79.4 Long term (current) use of insulin; Z79.899 Other long term (current) drug therapy
CPT/HCPCS: 36415; 71045; 80053; 84484; 85025; 93005; 99285-25

== ENCOUNTER 2020-03-26 15:15 | Inpatient (IN) | payer OTHER ==
[2020-03-26] MEDS ORDERED: Ondansetron 4 MG/2 ML SDV IV ONE (15:29)
[2020-03-26] MEDS: Sodium Chloride 0.9% 10 ML Syringe FLUSH PRN (15:33)
[2020-03-26 15:56] LABS: ANION GAP 11.8 mEq/L (7-13); CHLORIDE,CL 87 mmol/L (98-107); SODIUM,NA 122 mmol/L (136-145)
--- NOTE | 2020-03-26 16:18 | CT ---
EXAMINATION: Head wo Cont SEX: Female AGE: 70 years CLINICAL HISTORY: 70-year-old hypertensive 158 pound diabetic female ALTERED MENTAL STATUS. Comparison CT scan head 25 September 2012 revealed "no evidence infarct, hemorrhage or mass". Scan technique: Volume acquisition of data emergency unenhanced CT scan of the head and brain obtained with the patient lying supine on the Siemens multislice scanner [place], [place]. All data archived in the PACS system for storage, reformatting axial/sagittal/coronal planes and study. Interpretation: Generalized atrophy increased but exam otherwise unchanged since 03 October 2012. 1. Uniformly thick bony calvarium. No sign of pathologic skeletal lesion, skull fracture, underlying brain contusion or epidural/subdural hematoma. 2. Symmetric clear pneumatization of the paranasal and mastoid sinuses. No inflammatory changes. 3. No supratentorial or posterior fossa mass lesion. No hydrocephalus. 4. Atrophy and... *multiple scattered areas of decreased attenuation throughout the periventricular white matter characteristic of multi-infarct ischemic disease. 5. No sign of acute intracerebral, intraventricular or subarachnoid bleed. 6. Cerebellum and brainstem unremarkable. CONCLUSION: No new evidence intracranial mass, hydrocephalus or bleed. Multi-infarct ischemic disease.
[2020-03-26] MEDS ORDERED: Sodium Chloride 0.9% 1,000 ML IV ONE (16:22)
[2020-03-26] MEDS ORDERED: cefTRIAXone 1 GM in Sodium Chloride 0.9% 50 ML IV ONE (16:23)
--- NOTE | 2020-03-26 16:46 | EDM.PDOC ---
Scribed by Kelly Bailey 03/26/20 1610 for Love Blount NP ED HPI GENERAL MEDICAL PROBLEM - General Chief Complaint: 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 Problem Stated Complaint: IN BY AMBULANCE Time Seen by Provider: 03/26/20 15:55 Source of Information: Reports: Patient, RN, RN Notes Reviewed History Limitations: Reports: No Limitations - History of Present Illness INITIAL COMMENTS - FREE TEXT/NARRATIVE: Patient presents to ER per [facility] with complaint of feeling tired, complaint of a "bad cough" at nighttime, dizziness when up to go to the bathroom, nausea and vomiting. She was tested for COVID x1 month and was negative. She also complains of weakness with standing. She has history of diabetes mellitus--insulin dependent and 3 vessel CABG. She has had no diarrhea, chest pains, shortness of breath, denies urinary symptoms, fever or chills. She is oriented x3. Patient was seen at [facility] clinic today, labs were done, found to have low sodium and a UTI. [facility] reported neuro changes today, other than weakness no neuro changes noted. Onset: Gradual Duration: Getting Worse Location: Reports: Generalized Severity: Moderate Improves with: Reports: None Worsens with: Reports: None Associated Symptoms: Reports: No Other Symptoms - Related Data Allergies Allergy/AdvReac Type Severity Reaction Status Date / Time chocolate flavor Allergy Hives Verified 03/26/20 15:09 diazepam [From Valium] Allergy Confusion Verified 03/26/20 15:09 diphenhydramine Allergy Confusion Verified 03/26/20 15:09 [From Benadryl] kiwi Allergy Blisters Verified 03/26/20 15:09 lisinopril [From Prinivil] Allergy Swollen Verified 03/26/20 15:09 Tongue metformin [From Glucophage] Allergy Cough Verified 03/26/20 15:09 pantoprazole Allergy Other Verified 03/26/20 15:09 pineapple Allergy Blisters Verified 03/26/20 15:09 BEE VENOM Allergy Swelling Uncoded 03/26/20 15:09 Home Meds: Home Meds Acetaminophen [Tylenol Extra Strength] 1,000 mg PO Q6H PRN 04/28/16 [History] Aspirin [Halfprin] 81 mg PO DAILY 04/28/16 [History] Calcium Citrate/Vitamin D3 [Calcium Citrate + D] 1 tab PO DAILY 04/28/16 [History] Cholecalciferol (Vitamin D3) [Vitamin D3] 1,000 units PO DAILY 04/28/16 [History] Insulin Aspart [Novolog Flexpen] 14 units SQ ASDIRECTED 04/28/16 [History] Insulin Detemir [Levemir Flextouch] 45 unit SQ BEDTIME 04/28/16 [History] Loratadine [Claritin] 10 mg PO DAILY 04/28/16 [History] Multivitamin [Multivitamins] 1 cap PO DAILY 04/28/16 [History] atorvaSTATin [Lipitor] 40 mg PO BEDTIME 04/28/16 [History] Docusate Sodium 200 mg PO BID PRN 03/12/19 [History] Ferrous Sulfate 325 mg PO BID 03/12/19 [History] Metoprolol Tartrate 12.5 mg PO BID 03/12/19 [History] Omeprazole 20 mg PO DAILY 03/12/19 [History] Saxagliptin HCl [Onglyza] 5 mg PO DAILY 03/12/19 [History] traMADol [Ultram] 50 mg PO Q8H PRN 08/05/19 [History] Past Medical History HEENT History: Reports: Cataract, Impaired Vision Other HEENT History: wears glasses Cardiovascular History: Reports: CAD, High Cholesterol, Hypertension, [place] Respiratory History: Reports: None Gastrointestinal History: Reports: GERD, Hiatal Hernia Other Gastrointestinal History: SCHATZKI'S RING 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 History: Reports: Chronic Renal Insuffiency, Other (See Below) Other 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 History: RENAL STENT. Renal artery stenosis [employer] History: Reports: Musculoskeletal History: Reports: Osteoarthritis, Other (See Below) Other Musculoskeletal History: FRACTURED LEFT ANKLE X3 Neurological History: Reports: None Psychiatric History: Reports: None Endocrine/Metabolic History: Reports: Diabetes, Type II Hematologic History: Reports: None Immunologic History: Reports: None Oncologic (Cancer) History: Reports: None Dermatologic History: Reports: None - Infectious Disease History Infectious Disease History: Reports: Chicken Pox, Measles, Mumps - Past Surgical History Head Surgeries/Procedures: Reports: None HEENT Surgical History: Reports: Cataract Surgery Cardiovascular Surgical History: Reports: Coronary Artery Bypass, Coronary Artery Stent Other Cardiovascular Surgeries/Procedures: ELECTROCARDIOGRAM Respiratory Surgical History: Reports: None GI Surgical History: Reports: EGD, Esophageal Dilatation Neurological Surgical History: Reports: None Musculoskeletal Surgical History: Reports: Arthroscopic Knee Oncologic Surgical History: Reports: None Dermatological Surgical History: Reports: None Social & Family History - Family History Family Medical History: Noncontributory Cardiac: Reports: High Cholesterol, Hypertension, [place] : Reports: Dialysis Musculoskeletal: Reports: Arthritis Endocrine/Metabolic: Reports: Diabetes, type II Oncologic: Reports: Lung - Tobacco Use Smoking Status *Q: Never Smoker - Caffeine Use Caffeine Use: Reports: Coffee - Recreational Drug Use Recreational Drug Use: No - Living Situation & Occupation Living situation: Reports: with Family Occupation: Retired ED ROS GENERAL - Review of Systems Review Of Systems: Comprehensive ROS is negative, except as noted in HPI. ED EXAM, RENAL/ - Physical Exam Exam: See Below Exam Limited By: No Limitations General Appearance: Alert, WD/WN, No Apparent Distress Eye Exam: Bilateral Eye: EOMI, Normal Inspection, PERRL Ears: Normal External Exam, Normal Canal, Hearing Grossly Normal, Normal TMs Nose: Normal Inspection, Normal Mucosa, No Blood Throat/Mouth: Normal Inspection, Normal Lips, Normal Teeth, Normal Gums, Normal Oropharynx, Normal Voice, No Airway Compromise Head: Atraumatic, Normocephalic Neck: Normal Inspection, Supple, Non-Tender, Full Range of Motion Respiratory/Chest: Other (diminished) Cardiovascular: Regular Rate, Rhythm GI/Abdominal: Normal Bowel Sounds, Soft, Non-Tender, No Organomegaly, No Distention, No Abnormal Bruit, No Mass (Female) Exam: Deferred Rectal (Female) Exam: Deferred Back Exam: Normal Inspection, Full Range of Motion, NT Extremities: Normal Inspection, Normal Range of Motion, Non-Tender, Normal Capillary Refill, No Pedal Edema Neurological: Alert, Oriented, CN II-XII Intact, Normal Cognition, Normal Gait, Normal Reflexes, No Motor/Sensory Deficits Psychiatric: Normal Affect, Normal Mood Skin Exam: Warm, Dry, Intact, Normal Color, No Rash Lymphatic: No Adenopathy Course - Vital Signs Last Recorded V/S: Last Vital Signs Temp 97.2 F 03/26/20 15:24 Pulse 60 03/26/20 15:24 Resp 16 03/26/20 15:24 BP 170/75 H 03/26/20 15:24 Pulse Ox 99 03/26/20 15:24 - Orders/Labs/Meds Orders: Active Orders 24 hr Category Date Time Status Admission Diagnosis [ADT] Stat ADT 03/26/20 16:25 Ordered Admission Status [Patient Status] [ADT] Routine ADT 03/26/20 16:25 Active EKG Documentation Completion [RC] STAT Care 03/26/20 15:20 Active Peripheral IV Care [RC] . DIRECTED Care 03/26/20 15:21 Active DRUG SCREEN URINE BIORAD [URCHEM] Stat Lab 03/26/20 15:20 Ordered UA RFX JAMES AND CULT IF INDIC [URIN] Stat Lab 03/26/20 15:21 Ordered Sodium Chloride 0.9% [Normal Saline] 1,000 ml Med 03/26/20 16:22 Active IV CONTINUOUS Sodium Chloride 0.9% [Saline Flush] Med 03/26/20 15:20 Active 10 ml FLUSH ASDIRECTED PRN cefTRIAXone [Rocephin] 1 gm Med 03/26/20 16:23 Active Sodium Chloride 0.9% [Normal Saline] 50 ml IV ONETIME Peripheral IV Insertion Adult [OM.PC] Stat Oth 03/26/20 15:20 Ordered Medication Orders Sodium Chloride (Normal Saline) 1,000 mls @ 150 mls/hr IV CONTINUOUS ONE Stop: 03/26/20 23:01 Ceftriaxone Sodium 1 gm/ (Sodium Chloride) 50 mls @ 100 mls/hr IV ONETIME ONE Stop: 03/26/20 16:52 Sodium Chloride (Saline Flush) 10 ml FLUSH ASDIRECTED PRN PRN Reason: Keep Vein Open Last Admin: 03/26/20 15:33 Dose: 10 ml Documented by: ÁLVARO Labs: Laboratory Tests 03/26/20 03/26/20 Range/Units 15:27 15:27 WBC 11.6 H (5.0-10.0) 10^3/uL RBC 4.60 (4.2-5.4) 10^6/uL Hgb 13.6 (12.0-16.0) g/dL Hct 38.0 (37.0-47.0) % MCV 82.6 D (80-100) fL MCH 29.6 (27.0-34.0) pg MCHC 35.8 H (33.0-35.0) g/dL Plt Count 192 (150-450) 10^3/uL Neut % (Auto) 89.2 H (42.2-75.2) % Lymph % (Auto) 5.3 L (20.5-50.1) % [place] % (Auto) 5.2 (2-8) % Eos % (Auto) 0.2 L (1.0-3.0) % Baso % (Auto) 0.1 (0.0-1.0) % Sodium 122 L (136-145) mmol/L Potassium 4.8 (3.5-5.1) mmol/L Chloride 87 L (98-107) mmol/L Carbon Dioxide 28 (21-32) mmol/L Anion Gap 11.8 (7-13) mEq/L BUN 12 (7-18) mg/dL Creatinine 1.11 H (0.55-1.02) mg/dL Est Cr Clr Drug Dosing 36.09 mL/min Estimated GFR (MDRD) 49 BUN/Creatinine Ratio 10.8 (No establ ref range) Glucose 297 H (74-99) mg/dL Calcium 9.1 (8.5-10.1) mg/dL Magnesium 1.7 L (1.8-2.4) mg/dL Total Bilirubin 0.9 (0.2-1.0) mg/dL AST 29 (15-37) U/L ALT 24 (14-59) U/L Alkaline Phosphatase 128 H (46-116) U/L Troponin I 0.056 (0.000-0.056) ng/mL B-Natriuretic Peptide 164 H (0-100) pg/ml Total Protein 8.4 H (6.4-8.2) g/dL Albumin 3.6 (3.4-5.0) g/dL Globulin 4.8 Albumin/Globulin Ratio 0.8 Ethyl Alcohol < 3 (0) mg/dL Meds: Medications Generic Name Dose Route Start Last Admin Trade Name Freq PRN Reason Stop Dose Admin Sodium Chloride 1,000 mls @ 150 mls/hr 03/26/20 16:22 Normal Saline IV 03/26/20 23:01 CONTINUOUS ONE Ceftriaxone Sodium 1 gm/ 50 mls @ 100 mls/hr 03/26/20 16:23 Sodium Chloride IV 03/26/20 16:52 ONETIME ONE Sodium Chloride 10 ml 03/26/20 15:20 03/26/20 15:33 Saline Flush FLUSH 10 ml ASDIRECTED PRN Administration Keep Vein Open Discontinued Medications Generic Name Dose Route Start Last Admin Trade Name Freq PRN Reason Stop Dose Admin Ondansetron HCl 4 mg 03/26/20 15:29 03/26/20 15:33 Zofran IV 03/26/20 15:30 4 mg ONETIME ONE Administration - Radiology Interpretation Free Text/Narrative:: Head CT: No new evidence of intracranial mass, hydrocephalus or bleed. Multi- infarct ischemic disease. See rad report. - Re-Assessments/Exams Free Text/Narrative Re-Assessment/Exam: 03/26/20 16:45 Discussed patient case with Dr. Koehler who agreed to accept the patient for inpatient admission. Departure - Departure Time of Disposition: 16:45 Disposition: Admitted As Inpatient 67 Condition: Fair Clinical Impression: UTI, Urinary tract infectious disease, Hyponatremia - Discharge Information *PRESCRIPTION DRUG MONITORING PROGRAM REVIEWED*: No *COPY OF PRESCRIPTION DRUG MONITORING REPORT IN PATIENT GARTH: No Forms: ED Department Discharge Sepsis Event Note (ED) - Evaluation Sepsis Screening Result: No Definite Risk - Focused Exam Vital Signs: Vital Signs Temp Pulse Resp BP Pulse Ox 03/26/20 15:24 97.2 F 60 16 170/75 H 99 - My Orders Last 24 Hours: My Active Orders 03/26/20 15:20 EKG Documentation Completion [RC] STAT DRUG SCREEN URINE BIORAD [URCHEM] Stat Sodium Chloride 0.9% [Saline Flush] 10 ml FLUSH ASDIRECTED PRN Peripheral IV Insertion Adult [OM.PC] Stat 03/26/20 15:21 Peripheral IV Care [RC] . DIRECTED UA RFX JAMES AND CULT IF INDIC [URIN] Stat 03/26/20 16:22 Sodium Chloride 0.9% [Normal Saline] 1,000 ml IV CONTINUOUS 03/26/20 16:23 cefTRIAXone [Rocephin] 1 gm Sodium Chloride 0.9% [Normal Saline] 50 ml IV ONETIME 03/26/20 16:25 Admission Diagnosis [ADT] Stat Admission Status [Patient Status] [ADT] Routine - Assessment/Plan Last 24 Hours: My Active Orders 03/26/20 15:20 EKG Documentation Completion [RC] STAT DRUG SCREEN URINE BIORAD [URCHEM] Stat Sodium Chloride 0.9% [Saline Flush] 10 ml FLUSH ASDIRECTED PRN Peripheral IV Insertion Adult [OM.PC] Stat 03/26/20 15:21 Peripheral IV Care [RC] . DIRECTED UA RFX JAMES AND CULT IF INDIC [URIN] Stat 03/26/20 16:22 Sodium Chloride 0.9% [Normal Saline] 1,000 ml IV CONTINUOUS 03/26/20 16:23 cefTRIAXone [Rocephin] 1 gm Sodium Chloride 0.9% [Normal Saline] 50 ml IV ONET YOLIE 03/26/20 16:25 Admission Diagnosis [ADT] Stat Admission Status [Patient Status] [ADT] Routine I have read and agree with the documentation that has been completed regarding this visit. By signing this record, I attest that the documentation was completed in my physical presence and is an accurate record of the encounter.
[2020-03-26] MEDS ORDERED: Ondansetron 4 MG/2 ML SDV IVPUSH PRN (17:14)
[2020-03-26] MEDS ORDERED: Acetaminophen/oxyCODONE 325-5 MG Tab PO PRN (17:14)
[2020-03-26] MEDS ORDERED: Docusate Sodium 100 MG Cap PO PRN (17:14)
[2020-03-26] MEDS ORDERED: Ondansetron 4 MG Tab.DIS PO PRN (17:14)
[2020-03-26] MEDS ORDERED: Sodium Chloride 0.9% 1,000 ML IV SCH (17:15)
[2020-03-26] MEDS: atorvaSTATin 10 MG Tab PO SCH (21:59)
[2020-03-26] MEDS: Metoprolol Tartrate 25 MG Tab PO SCH (21:59)
[2020-03-26] MEDS: Sodium Chloride 1 GM Tab PO SCH (22:00)
[2020-03-26] MEDS: Ferrous Sulfate 325 MG Tab PO SCH (22:00)
[2020-03-26] MEDS: Insulin Glarg,Human.Rec.Analog 100 Unit/ML SUBCUT SCH (22:01)
--- NOTE | 2020-03-26 22:31 | HP ---
CHIEF COMPLAINT: Dizziness and generalized weakness. HISTORY OF PRESENT ILLNESS: The patient is a 70-year-old female who was admitted through the emergency room because the patient has not been feeling well for the last 6 days and just feeling weak and gets dizzy when she gets up, and for the last 2 days, she started having some nausea and vomiting. She was seen in the [facility] and she was diagnosed to have urinary tract infection and low sodium and chloride. The patient was brought in by ambulance to the emergency room and she had a CAT scan of the head in the emergency room and this did not show any acute findings. Because of the low sodium and chloride and urinary tract infection, she was admitted for further evaluation and management. REVIEW OF SYSTEMS: The patient denies any diarrhea. Denies any dysuria, fever, chills, chest pain, orthopnea, PND. PAST MEDICAL HISTORY: Remarkable for type 2 diabetes mellitus, coronary artery disease, hypertension, dyslipidemia, history of Schatzki ring, history of renal stent for renal artery stenosis, and osteoarthritis. FAMILY HISTORY: Noncontributory. HOME MEDICATIONS: Tylenol, aspirin, calcium with vitamin D, insulin aspart, insulin detemir, Claritin, multivitamins, Lipitor, docusate, ferrous sulfate, metoprolol, omeprazole, Onglyza, and tramadol. ALLERGIES: Benadryl, kiwi, lisinopril, metformin, pantoprazole, pineapple, and bee venom. PHYSICAL EXAMINATION: General: The patient is alert and oriented, looks tired, but not in any acute distress. Vital Signs: Blood pressure is 170/75, pulse of 60, respirations of 16, temperature of 97.2, pulse ox is 99% on room air. HEENT: Normocephalic. There are pink palpebral conjunctivae. Sclerae anicteric. Neck: No JVD. No lymphadenopathy. Heart: Regular rate and rhythm. Normal S1 and S2. No gallops. No rubs. Lungs: Equal bilaterally. No crackles. No wheezing. Abdomen: Soft, nontender. Bowel sounds positive. Extremities: Negative for any pedal edema. No calf tenderness. LABORATORY WORKUP: CBC: WBC is 11.6 with 89.2 neutrophils, hemoglobin is 13.6, hematocrit is 38, platelets are 192. Comp panel: Sodium is 122, chloride of 87, creatinine is 1.11, glucose is 297, magnesium is 1.7, alkaline phosphatase 128. The rest of the panel unremarkable. BNP is 164. Troponin is 0.56. ADMITTING DIAGNOSES: 1. Urinary tract infection. 2. Hyponatremia and hypochloremia. 3. Coronary artery disease status post coronary artery bypass graft. 4. Hypertension. 5. Type 2 diabetes mellitus. TREATMENT PLAN: The patient is going to be admitted to General Medicine floor. She will be started on IV fluids and will replete sodium and chloride cautiously and she will also be empirically started on IV antibiotics for her urinary tract infection and she will be on sliding scale insulin and DVT prophylaxis, and the rest of the management as necessary, and the patient is a full code. [facility] /[id number]
[2020-03-27] MEDS: Acetaminophen 325 MG Tab PO PRN ×2 (05:03→17:11)
[2020-03-27] MEDS: Omeprazole 20 MG Cap.CR PO SCH (05:03)
[2020-03-27] MEDS: Insulin Lispro 100 Units/ML 3 ML Vial SUBCUT SCH ×3 (08:26→17:14)
[2020-03-27] MEDS: Aspirin 81 MG Tab.EC PO SCH (08:27)
[2020-03-27] MEDS: Enoxaparin 40 MG/0.4 ML Syringe SUBCUT SCH (08:27)
[2020-03-27] MEDS: Metoprolol Tartrate 25 MG Tab PO SCH ×2 (08:28→20:53)
[2020-03-27] MEDS: Sodium Chloride 1 GM Tab PO SCH ×2 (08:29→20:53)
[2020-03-27] MEDS: Calcium Carbonate/Vitamin D3 1250 MG-200 Unit Tab PO SCH (08:29)
[2020-03-27] MEDS: Ferrous Sulfate 325 MG Tab PO SCH ×2 (08:29→20:55)
--- NOTE | 2020-03-27 09:07 | PN ---
DATE: 03/27/2020 SUBJECTIVE: The patient this morning is feeling slightly better and she mentioned that she is no longer dizzy and no longer shaky with standing and ambulation and her appetite is slowly improving. The patient currently denies any ongoing complaints. She denies any chest pain, shortness of breath, abdominal pain, nor any other complaints. LABORATORY DATA: Lab workup this morning, basic metabolic panel sodium is 132 (improving), chloride is 97, creatinine is 1.34, and glucose is 213. The rest of the panel unremarkable. OBJECTIVE: Vital Signs: Blood pressure is 112/58, pulse 79, respirations of 18, temperature of 98.2, and saturation is 96. Heart: Regular rate and rhythm. Normal S1 and S2. No gallops. No rubs. Lungs: Equal bilaterally. No crackles. No wheezing. Abdomen: Soft and nontender. Bowel sounds positive. Extremities: Negative for any pedal edema. No calf tenderness. MEDICATIONS: Reviewed. PLAN: We will discontinue her IV fluids. We will continue with her sodium chloride tablets and continue with the rest of her medication including ceftriaxone. [facility] /[id number]
[2020-03-27] MEDS: Sodium Chloride 0.9% 10 ML Syringe FLUSH PRN (17:05)
[2020-03-27] MEDS: atorvaSTATin 10 MG Tab PO SCH (20:53)
[2020-03-27] MEDS: Insulin Glarg,Human.Rec.Analog 100 Unit/ML SUBCUT SCH (20:57)
[2020-03-28] MEDS: Acetaminophen 325 MG Tab PO PRN (05:04)
[2020-03-28] MEDS: Omeprazole 20 MG Cap.CR PO SCH (05:04)
[2020-03-28 05:57] LABS: ANION GAP 10.8 mEq/L (7-13)
[2020-03-28 07:28] VITALS: BP 148/61; PULSE 63
[2020-03-28] MEDS: Metoprolol Tartrate 25 MG Tab PO SCH (08:14)
[2020-03-28] MEDS: Ferrous Sulfate 325 MG Tab PO SCH (08:15)
[2020-03-28] MEDS: Aspirin 81 MG Tab.EC PO SCH (08:15)
[2020-03-28] MEDS: Sodium Chloride 1 GM Tab PO SCH (08:15)
[2020-03-28] MEDS: Calcium Carbonate/Vitamin D3 1250 MG-200 Unit Tab PO SCH (08:15)
[2020-03-28] MEDS: Insulin Lispro 100 Units/ML 3 ML Vial SUBCUT SCH (08:16)
[2020-03-28] MEDS: Enoxaparin 40 MG/0.4 ML Syringe SUBCUT SCH (08:18)
--- NOTE | 2020-03-28 10:57 | PN ---
DATE: 03/28/2020 SUBJECTIVE: The patient continues to do well and the patient is back to her baseline and appetite is good. Denies any fever, chills, chest pain, abdominal pain, or any other complaints. LABORATORY DATA: Lab workup this morning, sodium is 136 which is now within normal limits. Creatinine is 1.4, glucose is 195, calcium 8.4. Preliminary results of the urine culture showed mixed dash suggestive of contamination. OBJECTIVE: Vital Signs: Blood pressure is 148/61, pulse of 63, respiration of 16, temperature of 98.1, saturation is 98%. Heart: Regular rate and rhythm. Normal S1 and S2. No gallops. No rubs. Lungs: Equal bilaterally. No crackles. No wheezing. Abdomen: Soft, nontender. Bowel sounds positive. Extremities: Negative for any pedal edema. No calf tenderness. PLAN: We will discharge the patient home today and we will resume her previous home medication and we will have her follow up at [facility] in 1 week. [facility] /[id number]
--- NOTE | 2020-03-28 11:12 | DISCH ---
FINAL DIAGNOSES: 1. Hyponatremia and hypochloremia. 2. Urinary tract infection. 3. Coronary artery disease, status post coronary artery bypass graft. 4. Hypertension. 5. Type 2 diabetes mellitus. BRIEF HISTORY OF PRESENT ILLNESS: Please see H and P. PERTINENT LABORATORY DATA, X-RAY, AND OTHER TESTS ON ADMISSION: See H and P. HOSPITAL COURSE: The patient was admitted to General Medicine floor. She was started on IV fluids with normal saline and was also started empirically on IV antibiotics with Rocephin for her urinary tract infection. She was also started on sodium chloride tablets for the hyponatremia and hypochloremia. She was placed on sliding scale insulin for her diabetes and she was also placed on DVT prophylaxis. The patient did well during the hospitalization. The patient's serum sodium slowly improved, and she was feeling much better, and she was back to her baseline, and she was then discharged. CONDITION ON DISCHARGE: Improved. DISCHARGE INSTRUCTIONS: She is going to be resumed on all previous home medications, and she is going to follow up at [facility] in 1 week for recheck basic metabolic panel and urinalysis. [facility] /[id number]
== END 2020-03-28 10:55 | disposition home or self-care (01) | DRG 690 ==
LOC: DL.ED 15:15 → DL.MS 17:12 → UNDOADMIN 17:12 → DL.MS 17:14
PROVIDERS: ADMIT Internal Medicine; ATTEND Internal Medicine
DX: N39.0 Urinary tract infection, site not specified (principal); E87.1 Hypo-osmolality and hyponatremia; E87.8 Other disorders of electrolyte and fluid balance, not elsewhere classified; I25.10 Atherosclerotic heart disease of native coronary artery without angina pectoris; I12.9 Hypertensive chronic kidney disease with stage 1 through stage 4 chronic kidney disease, or unspecified chronic kidney disease; N18.9 Chronic kidney disease, unspecified; E78.00 Pure hypercholesterolemia, unspecified; I10 Essential (primary) hypertension; K21.9 Gastro-esophageal reflux disease without esophagitis; E11.9 Type 2 diabetes mellitus without complications; E78.5 Hyperlipidemia, unspecified; K22.2 Esophageal obstruction; E11.22 Type 2 diabetes mellitus with diabetic chronic kidney disease; Z95.5 Presence of coronary angioplasty implant and graft; K44.9 Diaphragmatic hernia without obstruction or gangrene; Z98.49 Cataract extraction status, unspecified eye; Z91.030 Bee allergy status; H54.7 Unspecified visual loss; Z96.0 Presence of urogenital implants; I70.1 Atherosclerosis of renal artery; Z79.4 Long term (current) use of insulin; M19.90 Unspecified osteoarthritis, unspecified site; Z88.8 Allergy status to other drugs, medicaments and biological substances; Z91.018 Allergy to other foods; Z95.1 Presence of aortocoronary bypass graft; Z91.013 Allergy to seafood; Z79.82 Long term (current) use of aspirin; Z79.899 Other long term (current) drug therapy; I25.2 Old myocardial infarction; Z91.02 Food additives allergy status
CPT/HCPCS: 36415; 70450; 80048; 80053; 80305-QW; 80307; 81001; 82962; 83735; 83880; 84484; 85025; 87040; 87086; 93005; 96374; 99285-25; A9270-GY; J0696; J1650; J1815-GY; J2405; J7030; J7050

== ENCOUNTER 2020-04-17 23:31 | Observation (INO) | payer MEDICARE, OTHER ==
[2020-04-17] MEDS ORDERED: Ondansetron 4 MG/2 ML SDV IVPUSH ONE (23:33)
[2020-04-17] MEDS ORDERED: Meclizine 12.5 MG Tab PO ONE (23:33)
--- NOTE | 2020-04-17 23:36 | EDM.PDOC ---
ED HPI GENERAL MEDICAL PROBLEM - General Chief Complaint: General Stated Complaint: AMBULANCE Time Seen by Provider: 04/17/20 23:34 Source of Information: Reports: Patient History Limitations: Reports: No Limitations - History of Present Illness INITIAL COMMENTS - FREE TEXT/NARRATIVE: c/o recurrent nausea with dizziness. was here for same last month and admitted for eval and d/c. - Related Data Allergies Allergy/AdvReac Type Severity Reaction Status Date / Time chocolate flavor Allergy Hives Verified 03/26/20 15:09 diazepam [From Valium] Allergy Confusion Verified 03/26/20 15:09 diphenhydramine Allergy Confusion Verified 03/26/20 15:09 [From Benadryl] kiwi Allergy Blisters Verified 03/26/20 15:09 lisinopril [From Prinivil] Allergy Swollen Verified 03/26/20 15:09 Tongue metformin [From Glucophage] Allergy Cough Verified 03/26/20 15:09 pantoprazole Allergy Other Verified 03/26/20 15:09 pineapple Allergy Blisters Verified 03/26/20 15:09 BEE VENOM Allergy Swelling Uncoded 03/26/20 15:09 Home Meds: Home Meds Acetaminophen [Tylenol Extra Strength] 1,000 mg PO BID PRN 04/28/16 [History] Aspirin [Halfprin] 81 mg PO DAILY 04/28/16 [History] Calcium Citrate/Vitamin D3 [Calcium Citrate + D] 1 tab PO DAILY 04/28/16 [History] Insulin Aspart [Novolog Flexpen] 10 - 20 units SQ TIDMEALS 04/28/16 [History] Insulin Detemir [Levemir Flextouch] 45 unit SQ BEDTIME 04/28/16 [History] Multivitamin [Multivitamins] 1 cap PO DAILY 04/28/16 [History] atorvaSTATin [Lipitor] 40 mg PO BEDTIME 04/28/16 [History] Docusate Sodium 200 mg PO BID PRN 03/12/19 [History] Metoprolol Tartrate 12.5 mg PO BID 03/12/19 [History] Omeprazole 20 mg PO DAILY 03/12/19 [History] Alogliptin Benzoate [Alogliptin] 12.5 mg PO DAILY 03/26/20 [History] Betamethasone Dipropionate [Betamethasone Diprop Augmented] 1 applic TOP BID 03/26/20 [History] Cholecalciferol (Vitamin D3) [Vitamin D3] 25 mcg PO DAILY 03/26/20 [History] Fluticasone Propionate [Flonase] 1 spray NASBOTH BEDTIME 03/26/20 [History] Losartan [Cozaar] 25 mg PO DAILY 03/26/20 [History] Magnesium Oxide 400 mg PO DAILY 03/26/20 [History] Montelukast [Singulair] 10 mg PO DAILY 03/26/20 [History] Past Medical History HEENT History: Reports: Cataract, Impaired Vision Other HEENT History: wears glasses Cardiovascular History: Reports: CAD, High Cholesterol, Hypertension, [place] Respiratory History: Reports: None Gastrointestinal History: Reports: GERD, Hiatal Hernia Other Gastrointestinal History: SCHATZKI'S RING 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 History: Reports: Chronic Renal Insuffiency Other 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 History: RENAL STENT 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: Musculoskeletal History: Reports: Other (See Below) Other Musculoskeletal History: FRACTURED LEFT ANKLE X3 Neurological History: Reports: None Psychiatric History: Reports: None Endocrine/Metabolic History: Reports: Diabetes, Type II Hematologic History: Reports: None Immunologic History: Reports: None Oncologic (Cancer) History: Reports: None Dermatologic History: Reports: None - Infectious Disease History Infectious Disease History: Reports: Chicken Pox, Measles, Mumps - Past Surgical History Head Surgeries/Procedures: Reports: None HEENT Surgical History: Reports: Cataract Surgery Cardiovascular Surgical History: Reports: Coronary Artery Bypass, Coronary Artery Stent Other Cardiovascular Surgeries/Procedures: ELECTROCARDIOGRAM Respiratory Surgical History: Reports: None GI Surgical History: Reports: EGD, Esophageal Dilatation Neurological Surgical History: Reports: None Musculoskeletal Surgical History: Reports: Arthroscopic Knee Oncologic Surgical History: Reports: None Dermatological Surgical History: Reports: None Social & Family History - Family History Family Medical History: Noncontributory Cardiac: Reports: High Cholesterol, Hypertension, [place] : Reports: Dialysis Musculoskeletal: Reports: Arthritis Endocrine/Metabolic: Reports: Diabetes, type II Oncologic: Reports: Lung - Caffeine Use Caffeine Use: Reports: Coffee - Living Situation & Occupation Living situation: Reports: with Family Occupation: Retired ED ROS GENERAL - Review of Systems Review Of Systems: Comprehensive ROS is negative, except as noted in HPI. ED EXAM, GENERAL - Physical Exam Exam: See Below Exam Limited By: No Limitations General Appearance: Alert, WD/WN, Mild Distress, Other (discomfort) Ears: Hearing Grossly Normal Throat/Mouth: Normal Voice, No Airway Compromise Head: Atraumatic Neck: Non-Tender, Full Range of Motion Course - Vital Signs Last Recorded V/S: Last Vital Signs Temp 35.9 C L 04/17/20 23:35 Pulse 66 04/17/20 23:35 Resp 15 04/17/20 23:35 BP 189/76 H 04/17/20 23:35 Pulse Ox 100 04/17/20 23:35 - Orders/Labs/Meds Labs: Laboratory Tests 04/17/20 04/17/20 04/17/20 Range/Units 23:42 23:42 23:56 WBC 6.8 (5.0-10.0) 10^3/uL RBC 4.07 L (4.2-5.4) 10^6/uL Hgb 12.1 D (12.0-16.0) g/dL Hct 34.1 L (37.0-47.0) % MCV 83.8 (80-100) fL MCH 29.7 (27.0-34.0) pg MCHC 35.5 H (33.0-35.0) g/dL Plt Count 214 (150-450) 10^3/uL Neut % (Auto) 60.2 (42.2-75.2) % Lymph % (Auto) 28.4 (20.5-50.1) % [place] % (Auto) 7.8 (2-8) % Eos % (Auto) 3.0 (1.0-3.0) % Baso % (Auto) 0.6 (0.0-1.0) % Sodium 125 L D (136-145) mmol/L Potassium 3.7 (3.5-5.1) mmol/L Chloride 90 L (98-107) mmol/L Carbon Dioxide 28 (21-32) mmol/L Anion Gap 10.7 (7-13) mEq/L BUN 10 (7-18) mg/dL Creatinine 1.03 H (0.55-1.02) mg/dL Est Cr Clr Drug Dosing 38.90 mL/min Estimated GFR (MDRD) 53 BUN/Creatinine Ratio 9.7 (No establ ref range) Glucose 111 H (74-99) mg/dL Calcium 8.7 (8.5-10.1) mg/dL Total Bilirubin 0.6 (0.2-1.0) mg/dL AST 23 (15-37) U/L ALT 25 (14-59) U/L Alkaline Phosphatase 129 H (46-116) U/L Total Protein 7.5 (6.4-8.2) g/dL Albumin 3.3 L (3.4-5.0) g/dL Globulin 4.2 Albumin/Globulin Ratio 0.79 Urine Color Straw (YELLOW) Urine Appearance Slightly cloudy (CLEAR) Urine pH 6.5 (5.0-9.0) Ur Specific [place] 1.010 (1.005-1.030) Urine Protein Trace H (NEGATIVE) Urine Glucose (UA) Negative (NEGATIVE) Urine Ketones Negative (NEGATIVE) Urine Occult Blood Trace-intact H (NEGATIVE) Urine Nitrite Negative (NEGATIVE) Urine Bilirubin Negative (NEGATIVE) Urine Urobilinogen 0.2 (0.2-1.0) mg/dL Ur Leukocyte Esterase Negative (NEGATIVE) Urine RBC 0-5 /HPF Urine WBC 0-5 (0-5/HPF) /HPF Ur Epithelial Cells Few (NOT SEEN) /HPF Amorphous Sediment Few (NOT SEEN) /HPF Urine Bacteria Few (0-FEW/HPF) /HPF Urine Mucus Few H (NOT SEEN) /LPF Meds: Medications Discontinued Medications Generic Name Dose Route Start Last Admin Trade Name Lennyq PRN Reason Stop Dose Admin Meclizine HCl 12.5 mg 04/17/20 23:33 04/17/20 23:45 Antivert PO 04/17/20 23:34 12.5 mg ONETIME ONE Administration Ondansetron HCl 4 mg 04/17/20 23:33 04/17/20 23:44 Zofran IVPUSH 04/17/20 23:34 4 mg ONETIME ONE Administration - Re-Assessments/Exams Free Text/Narrative Re-Assessment/Exam: 04/18/20 00:[address] Montgomery who kindly admitted pt to observation. Departure - Departure Time of Disposition: 00:41 Disposition: Refer to Observation Condition: Good Clinical Impression: Hyponatremia, Dizziness Vomiting Qualifiers: Vomiting type: unspecified Vomiting Intractability: non-intractable Nausea presence: with nausea Qualified Code(s): R11.2 - Nausea with vomiting, unspecified - Discharge Information Forms: ED Department Discharge Sepsis Event Note (ED) - Focused Exam Vital Signs: Vital Signs Temp Pulse Resp BP Pulse Ox 04/17/20 23:35 35.9 C L 66 15 189/76 H 100
[2020-04-18 00:16] LABS: ANION GAP 10.7 mEq/L (7-13)
[2020-04-18] MEDS ORDERED: Ondansetron 4 MG/2 ML SDV IVPUSH PRN (00:43)
[2020-04-18] MEDS: Sodium Chloride 0.9% 1,000 ML IV SCH ×3 (02:03→21:12)
[2020-04-18] MEDS ORDERED: Acetaminophen 325 MG Tab PO PRN (08:49)
[2020-04-18] MEDS: Insulin Lispro 100 Units/ML 3 ML Vial SUBCUT SCH ×7 (09:58→21:04)
[2020-04-18] MEDS ORDERED: Non-Formulary Medication 1 Each (Betamethasone Dipropionate [Betamethasone Diprop Augmente TOP PRN (10:15)
[2020-04-18] MEDS ORDERED: Acetaminophen 500 MG Tab PO PRN (10:15)
[2020-04-18] MEDS ORDERED: ALBUTEROL INH PRN (10:15)
--- NOTE | 2020-04-18 10:42 | PCM.HP ---
H&P History of Present Illness - General Date of Service: 04/18/20 Admit Problem/Dx: Admission Diagnosis/Problem Admission Diagnosis/Problem Dizziness and giddiness Source of Information: Patient - History of Present Illness Initial Comments - Free Text/Narative: The patient is a 70-year-old female with medical history of coronary artery disease, chronic kidney disease, diabetes mellitus, hypertension. The patient presented to the emergency room with complaint of dizziness which has been going on for the past 2 days. She describes it as lightheadedness and it happens mostly when she stands up. Denies associated vertigo but feels that her balance has been sometimes off. No weakness of the extremities. Patient was having nausea and vomiting since yesterday. Vomited multiple times. No fever chills or rigors. Was seen in emergency room a few days ago with similar condition.. Right Shoulder Pain Score (Numeric/FACES): 4 - Related Data Allergies/Adverse Reactions: Allergies Allergy/AdvReac Type Severity Reaction Status Date / Time chocolate flavor Allergy Hives Verified 04/18/20 01:20 diazepam [From Valium] Allergy Confusion Verified 04/18/20 01:20 diphenhydramine Allergy Confusion Verified 04/18/20 01:20 [From Benadryl] kiwi Allergy Blisters Verified 04/18/20 01:20 lisinopril [From Prinivil] Allergy Swollen Verified 04/18/20 01:20 Tongue metformin [From Glucophage] Allergy Cough Verified 04/18/20 01:20 pantoprazole Allergy Other Verified 04/18/20 01:20 pineapple Allergy Blisters Verified 04/18/20 01:20 BEE VENOM Allergy Swelling Uncoded 04/18/20 01:20 Home Medications: Home Meds Acetaminophen [Tylenol Extra Strength] 1,000 mg PO BID PRN 04/28/16 [History] Aspirin [Halfprin] 81 mg PO DAILY 04/28/16 [History] Calcium Citrate/Vitamin D3 [Calcium Citrate + D] 1 tab PO DAILY 04/28/16 [History] Insulin Aspart [Novolog Flexpen] 10 - 20 units SQ TIDMEALS 04/28/16 [History] Insulin Detemir [Levemir Flextouch] 40 unit SQ BEDTIME 04/28/16 [History] Multivitamin [Multivitamins] 1 cap PO DAILY 04/28/16 [History] atorvaSTATin [Lipitor] 40 mg PO BEDTIME 04/28/16 [History] Metoprolol Tartrate 12.5 mg PO BID 03/12/19 [History] Omeprazole 20 mg PO DAILY 03/12/19 [History] Alogliptin Benzoate [Alogliptin] 12.5 mg PO DAILY 03/26/20 [History] Betamethasone Dipropionate [Betamethasone Diprop Augmented] 1 applic TOP BID PRN 03/26/20 [History] Cholecalciferol (Vitamin D3) [Vitamin D3] 25 mcg PO DAILY 03/26/20 [History] Fluticasone Propionate [Flonase] 1 spray NASBOTH BEDTIME 03/26/20 [History] Losartan [Cozaar] 25 mg PO DAILY 03/26/20 [History] Montelukast [Singulair] 10 mg PO BEDTIME 03/26/20 [History] Albuterol [Proair HFA] 1 puff INH Q4H PRN 04/18/20 [History] Cetirizine HCl 10 mg PO BEDTIME 04/18/20 [History] Past Medical History HEENT History: Reports: Cataract, Hard of Hearing, Impaired Vision Other HEENT History: wears glasses Cardiovascular History: Reports: CAD, High Cholesterol, Hypertension, [place] Respiratory History: Reports: None Gastrointestinal History: Reports: GERD, Hiatal Hernia Other Gastrointestinal History: SCHATZKI'S RING 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 History: Reports: Chronic Renal Insuffiency, Other (See Below) Other 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 History: RENAL STENT. Renal artery stenosis [employer] History: Reports: Musculoskeletal History: Reports: Osteoarthritis Other Musculoskeletal History: FRACTURED LEFT ANKLE X3 Neurological History: Reports: None Psychiatric History: Reports: None Endocrine/Metabolic History: Reports: Diabetes, Type II Hematologic History: Reports: None Immunologic History: Reports: None Oncologic (Cancer) History: Reports: None Dermatologic History: Reports: None - Infectious Disease History Infectious Disease History: Reports: Chicken Pox, Measles, Mumps - Past Surgical History Head Surgeries/Procedures: Reports: None HEENT Surgical History: Reports: Cataract Surgery Cardiovascular Surgical History: Reports: Coronary Artery Bypass, Coronary Artery Stent Other Cardiovascular Surgeries/Procedures: ELECTROCARDIOGRAM Respiratory Surgical History: Reports: None GI Surgical History: Reports: EGD, Esophageal Dilatation Female Surgical History: Reports: None Endocrine Surgical History: Reports: None Neurological Surgical History: Reports: None Musculoskeletal Surgical History: Reports: Other (See Below) Other Musculoskeletal Surgeries/Procedures:: left knee surgery Oncologic Surgical History: Reports: None Dermatological Surgical History: Reports: None Social & Family History - Family History Family Medical History: Noncontributory Cardiac: Reports: High Cholesterol, Hypertension, [place] : Reports: Dialysis Musculoskeletal: Reports: Arthritis Endocrine/Metabolic: Reports: Diabetes, type II Oncologic: Reports: Lung - Tobacco Use Smoking Status *Q: Never Smoker Second Hand Smoke Exposure: No - Caffeine Use Caffeine Use: Reports: Coffee - Recreational Drug Use Recreational Drug Use: No - Living Situation & Occupation Living situation: Reports: with Family Occupation: Retired H&P Review of Systems - Review of Systems: Review Of Systems: See Below General: Reports: No Symptoms Pulmonary: Reports: No Symptoms Cardiovascular: Reports: No Symptoms Gastrointestinal: Reports: No Symptoms Musculoskeletal: Reports: No Symptoms Skin: Reports: No Symptoms Exam - Exam Exam: See Below - Vital Signs Vital Signs: Last Vital Signs Temp 36.4 C 04/18/20 08:00 Pulse 66 04/18/20 08:00 Resp 14 04/18/20 08:00 BP 177/75 H 04/18/20 08:00 Pulse Ox 99 04/18/20 08:00 Weight: 68.22 kg - Exam General: Alert, Oriented, Cooperative Neck: Supple, Trachea Midline, 2 Lungs: Clear to Auscultation, Normal Respiratory Effort Cardiovascular: Regular Rate, Regular Rhythm GI/Abdominal Exam: Normal Bowel Sounds, Soft, Non-Tender, No Organomegaly, No Distention, No Abnormal Bruit, No Mass, Pelvis Stable - Patient Data Lab Results Last 24 hrs: Laboratory Results - last 24 hr 04/17/20 04/17/20 04/17/20 Range/Units 23:42 23:42 23:56 WBC 6.8 (5.0-10.0) 10^3/uL RBC 4.07 L (4.2-5.4) 10^6/uL Hgb 12.1 D (12.0-16.0) g/dL Hct 34.1 L (37.0-47.0) % MCV 83.8 (80-100) fL MCH 29.7 (27.0-34.0) pg MCHC 35.5 H (33.0-35.0) g/dL Plt Count 214 (150-450) 10^3/uL Neut % (Auto) 60.2 (42.2-75.2) % Lymph % (Auto) 28.4 (20.5-50.1) % [place] % (Auto) 7.8 (2-8) % Eos % (Auto) 3.0 (1.0-3.0) % Baso % (Auto) 0.6 (0.0-1.0) % Sodium 125 L D (136-145) mmol/L Potassium 3.7 (3.5-5.1) mmol/L Chloride 90 L (98-107) mmol/L Carbon Dioxide 28 (21-32) mmol/L Anion Gap 10.7 (7-13) mEq/L BUN 10 (7-18) mg/dL Creatinine 1.03 H (0.55-1.02) mg/dL Est Cr Clr Drug Dosing 38.90 mL/min Estimated GFR (MDRD) 53 BUN/Creatinine Ratio 9.7 (No establ ref range) Glucose 111 H (74-99) mg/dL POC Glucose (70-105) mg/dl Calcium 8.7 (8.5-10.1) mg/dL Total Bilirubin 0.6 (0.2-1.0) mg/dL AST 23 (15-37) U/L ALT 25 (14-59) U/L Alkaline Phosphatase 129 H (46-116) U/L Total Protein 7.5 (6.4-8.2) g/dL Albumin 3.3 L (3.4-5.0) g/dL Globulin 4.2 Albumin/Globulin Ratio 0.79 Urine Color Straw (YELLOW) Urine Appearance Slightly cloudy (CLEAR) Urine pH 6.5 (5.0-9.0) Ur Specific [place] 1.010 (1.005-1.030) Urine Protein Trace H (NEGATIVE) Urine Glucose (UA) Negative (NEGATIVE) Urine Ketones Negative (NEGATIVE) Urine Occult Blood Trace-intact H (NEGATIVE) Urine Nitrite Negative (NEGATIVE) Urine Bilirubin Negative (NEGATIVE) Urine Urobilinogen 0.2 (0.2-1.0) mg/dL Ur Leukocyte Esterase Negative (NEGATIVE) Urine RBC 0-5 /HPF Urine WBC 0-5 (0-5/HPF) /HPF Ur Epithelial Cells Few (NOT SEEN) /HPF Amorphous Sediment Few (NOT SEEN) /HPF Urine Bacteria Few (0-FEW/HPF) /HPF Urine Mucus Few H (NOT SEEN) /LPF 04/18/20 04/18/20 04/18/20 Range/Units 01:10 06:13 06:13 WBC 5.4 (5.0-10.0) 10^3/uL RBC 3.91 L (4.2-5.4) 10^6/uL Hgb 11.7 L (12.0-16.0) g/dL Hct 32.8 L (37.0-47.0) % MCV 83.9 (80-100) fL MCH 29.9 (27.0-34.0) pg MCHC 35.7 H (33.0-35.0) g/dL Plt Count 216 (150-450) 10^3/uL Neut % (Auto) 58.3 (42.2-75.2) % Lymph % (Auto) 28.5 (20.5-50.1) % [place] % (Auto) 9.1 H (2-8) % Eos % (Auto) 3.7 H (1.0-3.0) % Baso % (Auto) 0.4 (0.0-1.0) % Sodium 127 L 130 L (136-145) mmol/L Potassium 4.0 (3.5-5.1) mmol/L Chloride 95 L (98-107) mmol/L Carbon Dioxide 28 (21-32) mmol/L Anion Gap 11.0 (7-13) mEq/L BUN 9 (7-18) mg/dL Creatinine 0.94 (0.55-1.02) mg/dL Est Cr Clr Drug Dosing 42.62 mL/min Estimated GFR (MDRD) 59 BUN/Creatinine Ratio (No establ ref range) Glucose 97 (74-99) mg/dL POC Glucose (70-105) mg/dl Calcium 8.5 (8.5-10.1) mg/dL Total Bilirubin (0.2-1.0) mg/dL AST (15-37) U/L ALT (14-59) U/L Alkaline Phosphatase (46-116) U/L Total Protein (6.4-8.2) g/dL Albumin (3.4-5.0) g/dL Globulin Albumin/Globulin Ratio Urine Color (YELLOW) Urine Appearance (CLEAR) Urine pH (5.0-9.0) Ur Specific [place] (1.005-1.030) Urine Protein (NEGATIVE) Urine Glucose (UA) (NEGATIVE) Urine Ketones (NEGATIVE) Urine Occult Blood (NEGATIVE) Urine Nitrite (NEGATIVE) Urine Bilirubin (NEGATIVE) Urine Urobilinogen (0.2-1.0) mg/dL Ur Leukocyte Esterase (NEGATIVE) Urine RBC /HPF Urine WBC (0-5/HPF) /HPF Ur Epithelial Cells (NOT SEEN) /HPF Amorphous Sediment (NOT SEEN) /HPF Urine Bacteria (0-FEW/HPF) /HPF Urine Mucus (NOT SEEN) /LPF 04/18/20 Range/Units 07:54 WBC (5.0-10.0) 10^3/uL RBC (4.2-5.4) 10^6/uL Hgb (12.0-16.0) g/dL Hct (37.0-47.0) % MCV (80-100) fL MCH (27.0-34.0) pg MCHC (33.0-35.0) g/dL Plt Count (150-450) 10^3/uL Neut % (Auto) (42.2-75.2) % Lymph % (Auto) (20.5-50.1) % [place] % (Auto) (2-8) % Eos % (Auto) (1.0-3.0) % Baso % (Auto) (0.0-1.0) % Sodium (136-145) mmol/L Potassium (3.5-5.1) mmol/L Chloride (98-107) mmol/L Carbon Dioxide (21-32) mmol/L Anion Gap (7-13) mEq/L BUN (7-18) mg/dL Creatinine (0.55-1.02) mg/dL Est Cr Clr Drug Dosing mL/min Estimated GFR (MDRD) BUN/Creatinine Ratio (No establ ref range) Glucose (74-99) mg/dL POC Glucose 115 H (70-105) mg/dl Calcium (8.5-10.1) mg/dL Total Bilirubin (0.2-1.0) mg/dL AST (15-37) U/L ALT (14-59) U/L Alkaline Phosphatase (46-116) U/L Total Protein (6.4-8.2) g/dL Albumin (3.4-5.0) g/dL Globulin Albumin/Globulin Ratio Urine Color (YELLOW) Urine Appearance (CLEAR) Urine pH (5.0-9.0) Ur Specific [place] (1.005-1.030) Urine Protein (NEGATIVE) Urine Glucose (UA) (NEGATIVE) Urine Ketones (NEGATIVE) Urine Occult Blood (NEGATIVE) Urine Nitrite (NEGATIVE) Urine Bilirubin (NEGATIVE) Urine Urobilinogen (0.2-1.0) mg/dL Ur Leukocyte Esterase (NEGATIVE) Urine RBC /HPF Urine WBC (0-5/HPF) /HPF Ur Epithelial Cells (NOT SEEN) /HPF Amorphous Sediment (NOT SEEN) /HPF Urine Bacteria (0-FEW/HPF) /HPF Urine Mucus (NOT SEEN) /LPF Result Diagrams: 04/18/20 06:13 04/18/20 06:13 Problem List Initiated/Reviewed/Updated: Yes Orders Last 24hrs: Active Orders 24 hr Category Date Time Status Admission Diagnosis [ADT] Stat ADT 04/18/20 00:42 Ordered Admission Status [Patient Status] [ADT] Routine ADT 04/18/20 00:42 Active Patient Status [ADT] Routine ADT 04/18/20 00:43 Active Cardiac Monitoring [RC] Care 04/18/20 00:44 Active Intake and Output [RC] QSHIFT Care 04/18/20 00:44 Active Oxygen Therapy [RC] .PRN Care 04/18/20 00:43 Active RT Post Treatment Assessment [RC] Click to Edit Care 04/18/20 10:16 Active RT Pre-Treatment Assessment [RC] Click to Edit Care 04/18/20 10:16 Active Up ad Johana [RC] ASDIRECTED Care 04/18/20 00:43 Active VTE/DVT Education [RC] PER UNIT ROUTINE Care 04/18/20 00:43 Active Vital Signs [RC] 00,04,08,12,16,20 Care 04/18/20 00:43 Active OT Evaluation and Treatment [CONS] Routine Cons 04/18/20 10:18 Active PT Evaluation and Treatment [CONS] Routine Cons 04/18/20 10:18 Active Consistent Carbohydrate Diet [DIET] Diet 04/18/20 Lunch Active SODIUM,NA [CHEM] Q6H Lab 04/18/20 12:00 Ordered SODIUM,NA [CHEM] Q6H Lab 04/18/20 18:00 Ordered SODIUM,NA [CHEM] Q6H Lab 04/19/20 00:00 Ordered Acetaminophen [TylenoL] Med 04/18/20 08:49 Active 650 mg PO Q4H PRN Acetaminophen [Tylenol Extra Strength] Med 04/18/20 10:15 Ordered 1,000 mg PO BID PRN Albuterol [Proventil HFA] Med 04/18/20 10:15 Ordered DOSE gm INH Q4H PRN Alogliptin Benzoate [Alogliptin] Med 04/19/20 09:00 Ordered 12.5 mg PO DAILY Aspirin [Halfprin] Med 04/18/20 10:30 Active 81 mg PO DAILY Betamethasone Dipropionate [Betamethasone Diprop Med 04/18/20 10:15 Ordered Augmented] 1 applic TOP BID PRN Calcium Citrate/Vitamin D3 [Calcium Citrate + D] Med 04/19/20 09:00 Ordered 1 tab PO DAILY Cetirizine HCl [Cetirizine HCl] Med 04/18/20 21:00 Active 10 mg PO BEDTIME Cholecalciferol (Vitamin D3) [Vitamin D3] Med 04/19/20 09:00 Ordered 25 mcg PO DAILY Fluticasone Propionate [Flonase] Med 04/18/20 21:00 Ordered DOSE gm NASBOTH BEDTIME Insulin Detemir Med 04/18/20 21:00 Ordered 40 unit SQ BEDTIME Insulin Lispro [HumaLOG] Med 04/18/20 08:00 Active 10 unit SUBCUT TIDMEALS Insulin Lispro [HumaLOG] Med 04/18/20 09:00 Active See Protocol SUBCUT QID Losartan [Cozaar] Med 04/18/20 10:45 Active 25 mg PO DAILY Metoprolol Tartrate [Lopressor] Med 04/18/20 10:45 Active 12.5 mg PO BID Montelukast [Singulair] Med 04/18/20 21:00 Ordered 10 mg PO BEDTIME Multivitamin [Multivitamins] Med 04/19/20 09:00 Ordered 1 cap PO DAILY Omeprazole [Omeprazole] Med 04/18/20 10:45 Active 20 mg PO ACBREAKFAST Ondansetron [Zofran] Med 04/18/20 00:43 Active 4 mg IVPUSH Q6H PRN Sodium Chloride 0.9% [Normal Saline] 1,000 ml Med 04/18/20 00:45 Active IV ASDIRECTED atorvaSTATin [Lipitor] Med 04/18/20 21:00 Ordered 40 mg PO BEDTIME Resuscitation Status Routine Resus Stat 04/18/20 00:43 Ordered Medication Orders Acetaminophen (Tylenol) 650 mg PO Q4H PRN PRN Reason: Pain (mild 1-3) Acetaminophen (Tylenol Extra Strength) 1,000 mg PO BID PRN PRN Reason: Pain Albuterol (Proventil Hfa) gm INH Q4H PRN PRN Reason: Shortness of Breath Aspirin (Halfprin) 81 mg PO DAILY RAMONA Atorvastatin Calcium (Lipitor) 40 mg PO BEDTIME RAMONA Cholecalciferol (Vitamin D3) 25 mcg PO DAILY RAMONA Fluticasone Propionate (Flonase) gm NASBOTH BEDTIME RAMONA Sodium Chloride (Normal Saline) 1,000 mls @ 100 mls/hr IV ASDIRECTED RAMONA Last Infusion: 04/18/20 10:00 Dose: 100 mls/hr Documented by: Admin: 04/18/20 02:03 Dose: 125 mls/hr Documented by: RICKEY Insulin Human Lispro (Humalog) 10 unit SUBCUT TIDMEALS [facility] Last Admin: 04/18/20 09:58 Dose: 10 units Documented by: LAURENCE Insulin Human Lispro (Humalog) 0 unit SUBCUT QID [facility]; Protocol Last Admin: 04/18/20 10:00 Dose: Not Given Documented by: LAURENCE Losartan Potassium (Cozaar) 25 mg PO DAILY RAMONA Metoprolol Tartrate (Lopressor) 12.5 mg PO BID RAMONA Montelukast Sodium (Singulair) 10 mg PO BEDTIME RAMONA Non-Formulary Medication (Alogliptin Benzoate [Alogliptin]) 12.5 mg PO DAILY RAMONA Non-Formulary Medication (Betamethasone Dipropionate [Betamethasone Diprop Augmented]) 1 applic TOP BID PRN PRN Reason: Rash Non-Formulary Medication (Calcium Citrate/Vitamin D3 [Calcium Citrate + D]) 1 tab PO DAILY RAMONA (Cetirizine Hcl [ Cetirizine Hcl] 10 Mg)*Pt Own Med* 10 mg PO BEDTIME RAMONA Non-Formulary Medication (Insulin Detemir) 40 unit SQ BEDTIME RAMONA Non-Formulary Medication (Multivitamin [Multivitamins]) 1 cap PO DAILY RAMONA (Omeprazole [ Omeprazole] 20 Mg)* Pt Own Med* 20 mg PO ACBREAKFAST RAMONA Ondansetron HCl (Zofran) 4 mg IVPUSH Q6H PRN PRN Reason: Nausea/Vomiting Assessment/Plan Comment:: The patient is a 70-year-old female with multiple medical problems who was admitted complaint of dizziness. Patient was found to have hyponatremia #. Dizziness Etiology is unclear It may be due to dehydration. Was was standing up and better when laying down #. Hyponatremia Serum sodium is at 125 Likely from nausea and vomiting #. Coronary artery disease Status post coronary artery bypass graft #. Diabetes mellitus type 2 On insulin therapy #. Chronic kidney disease Plan: Admit patient to medical floor Start intravenous fluid with normal saline going at 125 mL an hour Obtain serum sodium every 6 hours monitor blood sugar before meals and at bedtime Check orthostatic vital signs Physical therapy consult Occupational therapy consult Patient's medical chart reviewed. CODE STATUS is full code
[2020-04-18] MEDS: CHOLECALCIFEROL 25 MCG PO SCH (11:02)
[2020-04-18] MEDS: Metoprolol Tartrate 25 MG Tab*PT OWN MED PO SCH ×2 (11:02→21:06)
[2020-04-18] MEDS: ALOGLIPTIN BENZOATE 12.5 MG PO SCH (11:03)
[2020-04-18] MEDS: Aspirin 81 MG Tab.EC*PT OWN MED PO SCH (11:04)
[2020-04-18] MEDS: Multivitamins,Therapeutic Tab PO SCH (11:06)
[2020-04-18] MEDS ORDERED: CETIRIZINE HCL 10 MG PO SCH (21:00)
[2020-04-18] MEDS ORDERED: ATORVASTATIN 40 MG TAB *PT OWN MED PO SCH (21:00)
[2020-04-18] MEDS ORDERED: Insulin Glarg,Human.Rec.Analog 100 Unit/ML SUBCUT SCH (21:00)
[2020-04-18] MEDS ORDERED: Fluticasone Propionate Nasal Spray 16 GM Bottle NASBOTH SCH (21:00)
[2020-04-18] MEDS ORDERED: MONTELUKAST 10 MG PO SCH (21:00)
[2020-04-19 06:18] LABS: ANION GAP 10.4 mEq/L (7-13)
[2020-04-19] MEDS: Sodium Chloride 0.9% 1,000 ML IV SCH (07:16)
[2020-04-19 07:38] VITALS: BP 110/57; PULSE 61
[2020-04-19] MEDS: Insulin Lispro 100 Units/ML 3 ML Vial SUBCUT SCH ×4 (08:09→12:31)
[2020-04-19] MEDS: Aspirin 81 MG Tab.EC*PT OWN MED PO SCH (08:28)
[2020-04-19] MEDS: ALOGLIPTIN BENZOATE 12.5 MG PO SCH (08:30)
[2020-04-19] MEDS: CHOLECALCIFEROL 25 MCG PO SCH (08:32)
[2020-04-19] MEDS: Metoprolol Tartrate 25 MG Tab*PT OWN MED PO SCH (08:33)
[2020-04-19] MEDS: Multivitamins,Therapeutic Tab PO SCH (08:38)
[2020-04-19] MEDS ORDERED: Calcium Carbonate/Vitamin D3 1250 MG-200 Unit Tab PO SCH (09:00)
--- NOTE | 2020-04-19 09:42 | PCM.DCSUM1 ---
Discharge Summary - Hospital Course Free Text/Narrative:: The patient is a 70-year-old female with multiple medical problems who was admitted complaint of dizziness. Patient was found to have hyponatremia #. Dizziness probably from dehydration #. Hyponatremia Serum sodium was at 125 Likely from nausea and vomiting #. Coronary artery disease Status post coronary artery bypass graft #. Diabetes mellitus type 2 On insulin therapy #. Chronic kidney disease She was started on intravenous fluid. Her dizziness has subsided as well as nausea and vomiting. She has been able to ambulate. The patient will be discharged home and will have a repeat basic metabolic panel in 1 week. Diagnosis: Stroke: No - Discharge Data Discharge Date: 04/19/20 Discharge Disposition: Home, Self-Care 01 Condition: Stable - Referral to Home Health Primary Care Physician: Baron Crawford MD - Patient Summary/Data Consults: Consultations 04/18/20 10:18 OT Evaluation and Treatment [CONS] Routine PT Evaluation and Treatment [CONS] Routine - Patient Instructions Activity: As Tolerated Other/Special Instructions: BMP in one week - Discharge Plan Home Medications: Home Meds Acetaminophen [Tylenol Extra Strength] 1,000 mg PO BID PRN 04/28/16 [History] Aspirin [Halfprin] 81 mg PO DAILY 04/28/16 [History] Calcium Citrate/Vitamin D3 [Calcium Citrate + D] 1 tab PO DAILY 04/28/16 [History] Insulin Aspart [Novolog Flexpen] 10 - 20 units SQ TIDMEALS 04/28/16 [History] Insulin Detemir [Levemir Flextouch] 40 unit SQ BEDTIME 04/28/16 [History] Multivitamin [Multivitamins] 1 cap PO DAILY 04/28/16 [History] atorvaSTATin [Lipitor] 40 mg PO BEDTIME 04/28/16 [History] Metoprolol Tartrate 12.5 mg PO BID 03/12/19 [History] Omeprazole 20 mg PO DAILY 03/12/19 [History] Alogliptin Benzoate [Alogliptin] 12.5 mg PO DAILY 03/26/20 [History] Betamethasone Dipropionate [Betamethasone Diprop Augmented] 1 applic TOP BID PRN 03/26/20 [History] Cholecalciferol (Vitamin D3) [Vitamin D3] 25 mcg PO DAILY 03/26/20 [History] Fluticasone Propionate [Flonase] 1 spray NASBOTH BEDTIME 03/26/20 [History] Losartan [Cozaar] 25 mg PO DAILY 03/26/20 [History] Montelukast [Singulair] 10 mg PO BEDTIME 03/26/20 [History] Albuterol [Proair HFA] 1 puff INH Q4H PRN 04/18/20 [History] Cetirizine HCl 10 mg PO BEDTIME 04/18/20 [History] Referrals: Baron Crawford MD [Primary Care Provider] - - Discharge Summary/Plan Comment DC Time >30 min.: No - Review of Systems General: Reports: No Symptoms Pulmonary: Reports: No Symptoms Cardiovascular: Reports: No Symptoms Gastrointestinal: Reports: No Symptoms Musculoskeletal: Reports: No Symptoms Psychiatric: Reports: No Symptoms - Patient Data Vitals - Most Recent: Last Vital Signs Temp 36.8 C 04/19/20 07:37 Pulse 61 04/19/20 08:33 Resp 18 04/19/20 07:37 BP 110/57 L 04/19/20 08:33 Pulse Ox 97 04/19/20 07:37 Orthostatic Blood Pressure [ 131/72 Standing] Orthostatic Blood Pressure [ 140/77 Sitting] Orthostatic Blood Pressure [ 145/65 Supine] Weight - Most Recent: 68.22 kg I&O - Last 24 hours: Intake & Output 04/18/20 04/19/20 04/19/20 22:59 06:59 14:59 Intake Total 600 1919 Output Total 900 Balance -300 1919 Lab Results - Last 24 hrs: Laboratory Results - last 24 hr 04/18/20 04/18/20 04/18/20 Range/Units 11:36 12:25 16:45 Sodium 131 L (136-145) mmol/L Potassium (3.5-5.1) mmol/L Chloride (98-107) mmol/L Carbon Dioxide (21-32) mmol/L Anion Gap (7-13) mEq/L BUN (7-18) mg/dL Creatinine (0.55-1.02) mg/dL Est Cr Clr Drug Dosing mL/min Estimated GFR (MDRD) Glucose (74-99) mg/dL POC Glucose 221 H 80 (70-105) mg/dl Calcium (8.5-10.1) mg/dL 04/18/20 04/18/20 04/19/20 Range/Units 17:54 20:40 00:15 Sodium 133 L 132 L (136-145) mmol/L Potassium (3.5-5.1) mmol/L Chloride (98-107) mmol/L Carbon Dioxide (21-32) mmol/L Anion Gap (7-13) mEq/L BUN (7-18) mg/dL Creatinine (0.55-1.02) mg/dL Est Cr Clr Drug Dosing mL/min Estimated GFR (MDRD) Glucose (74-99) mg/dL POC Glucose 156 H (70-105) mg/dl Calcium (8.5-10.1) mg/dL 04/19/20 04/19/20 Range/Units 05:55 08:00 Sodium 136 (136-145) mmol/L Potassium 4.4 (3.5-5.1) mmol/L Chloride 104 (98-107) mmol/L Carbon Dioxide 26 (21-32) mmol/L Anion Gap 10.4 (7-13) mEq/L BUN 10 (7-18) mg/dL Creatinine 1.06 H (0.55-1.02) mg/dL Est Cr Clr Drug Dosing 37.80 mL/min Estimated GFR (MDRD) 51 Glucose 147 H (74-99) mg/dL POC Glucose 139 H (70-105) mg/dl Calcium 8.2 L (8.5-10.1) mg/dL Med Orders - Current: Current Medications Acetaminophen (Tylenol Extra Strength) 1,000 mg PO BID PRN PRN Reason: Pain Last Admin: 04/18/20 21:09 Dose: 1,000 mg Documented by: Albuterol (Proventil Hfa) 0 gm INH Q4H PRN PRN Reason: Shortness of Breath Last Admin: 04/19/20 09:29 Dose: 1 puff Documented by: Aspirin (Halfprin) 81 mg PO DAILY [facility] Last Admin: 04/19/20 08:28 Dose: 81 mg Documented by: Calcium Carbonate (Calcium Carbonate/Vitamin D 1250 Mg-200 Unit) 1 tab PO DAILY [facility] Last Admin: 04/19/20 08:37 Dose: 1 tab Documented by: Cholecalciferol (Vitamin D3) 25 mcg PO DAILY [facility] Last Admin: 04/19/20 08:32 Dose: 25 mcg Documented by: Fluticasone Propionate (Flonase) 0 gm NASBOTH BEDTIME [facility] Last Admin: 04/18/20 21:04 Dose: 1 spray Documented by: Sodium Chloride (Normal Saline) 1,000 mls @ 100 mls/hr IV ASDIRECTED [facility] Last Infusion: 04/19/20 09:24 Dose: 100 mls/hr Documented by: Insulin Glargine (Lantus) 40 unit SUBCUT BEDTIME [facility] Last Admin: 04/18/20 21:05 Dose: 40 units Documented by: Insulin Human Lispro (Humalog) 10 unit SUBCUT TIDMEALS [facility] Last Admin: 04/19/20 08:26 Dose: 10 units Documented by: Insulin Human Lispro (Humalog) 0 unit SUBCUT QID [facility]; Protocol Last Admin: 04/19/20 08:09 Dose: Not Given Documented by: Losartan Potassium (Cozaar) 25 mg PO DAILY [facility] Last Admin: 04/19/20 08:32 Dose: 25 mg Documented by: Metoprolol Tartrate (Lopressor) 12.5 mg PO BID [facility] Last Admin: 04/19/20 08:33 Dose: 12.5 mg Documented by: Montelukast Sodium (Singulair) 10 mg PO BEDTIME [facility] Last Admin: 04/18/20 21:08 Dose: 10 mg Documented by: Multivitamins (Thera) 1 each PO DAILY [facility] Last Admin: 04/19/20 08:38 Dose: 1 each Documented by: (Alogliptin Benzoate [Alogliptin] 12.5 Mg)*Pt Own Med* 12.5 mg PO DAILY [facility] Last Admin: 04/19/20 08:30 Dose: 12.5 mg Documented by: Atorvastatin 40 Mg (Tab *Pt Own Med*) 0 each PO BEDTIME [facility] Last Admin: 04/18/20 21:08 Dose: 1 each Documented by: Non-Formulary Medication (Betamethasone Dipropionate [Betamethasone Diprop Augmented]) 1 applic TOP BID PRN PRN Reason: Rash (Cetirizine Hcl [ Cetirizine Hcl] 10 Mg)*Pt Own Med* 10 mg PO BEDTIME [facility] Last Admin: 04/18/20 21:03 Dose: 10 mg Documented by: (Omeprazole [ Omeprazole] 20 Mg)* Pt Own Med* 20 mg PO DAILY@0800 [facility] Last Admin: 04/19/20 08:35 Dose: 20 mg Documented by: Ondansetron HCl (Zofran) 4 mg IVPUSH Q6H PRN PRN Reason: Nausea/Vomiting Discontinued Medications Acetaminophen (Tylenol) 650 mg PO Q4H PRN PRN Reason: Pain (mild 1-3) Meclizine HCl (Antivert) 12.5 mg PO ONETIME ONE Stop: 04/17/20 23:34 Last Admin: 04/17/20 23:45 Dose: 12.5 mg Documented by: (Omeprazole [ Omeprazole] 20 Mg)* Pt Own Med* 20 mg PO [facility] Last Admin: 04/18/20 11:02 Dose: 20 mg Documented by: Ondansetron HCl (Zofran) 4 mg IVPUSH ONETIME ONE Stop: 04/17/20 23:34 Last Admin: 04/17/20 23:44 Dose: 4 mg Documented by: - Exam General: Reports: Alert, Oriented, Cooperative Neck: Reports: Supple Lungs: Reports: Clear to Auscultation, Normal Respiratory Effort Cardiovascular: Reports: Regular Rate, Regular Rhythm GI/Abdominal Exam: Normal Bowel Sounds, Soft, Non-Tender, No Organomegaly, No Distention, No Abnormal Bruit, No Mass, Pelvis Stable (Female) Exam: Normal External Exam, Normal Speculum Exam, Normal Bimanual Exam
== END 2020-04-19 13:00 | disposition home or self-care (01) ==
LOC: DL.ED 23:31 → DL.MS 04-18 00:43
PROVIDERS: ADMIT Hospitalist; ATTEND Hospitalist
DX: R42 Dizziness and giddiness (principal); E87.1 Hypo-osmolality and hyponatremia; R11.2 Nausea with vomiting, unspecified; E11.22 Type 2 diabetes mellitus with diabetic chronic kidney disease; N18.9 Chronic kidney disease, unspecified; E78.00 Pure hypercholesterolemia, unspecified; Z79.82 Long term (current) use of aspirin; Z79.899 Other long term (current) drug therapy; Z91.030 Bee allergy status; Z88.8 Allergy status to other drugs, medicaments and biological substances; Z95.5 Presence of coronary angioplasty implant and graft; Z95.1 Presence of aortocoronary bypass graft; Z79.4 Long term (current) use of insulin
CPT/HCPCS: 36415; 80048; 80053; 81001; 82962; 84295; 85025; 96361; 96374; 97162-GP; 97165-GO; 99283; 99285-25; A9270-GY; G0378; J1815-GY; J2405; J7030

== ENCOUNTER 2020-07-05 12:37 | Emergency (ER) | payer MEDICARE, OTHER ==
--- NOTE | 2020-07-05 13:11 | CR ---
EXAMINATION: Chest 1V Frontal SEX: Female AGE: 70 years CLINICAL HISTORY: 70-year-old hypertensive/diabetic female complaining of CHEST PAIN. Interpretation: (Comparison exam 05 August 2019) No acute new cardiopulmonary abnormality. 1. Sternotomy wires and external environmental monitoring technician leads. Normal cardiac silhouette (size and configuration). 2. No new pulmonary vascular congestion, cephalization of flow, alveolar edema or pleural effusion. 3. No lung mass or hilar/mediastinal lymphadenopathy. 4. Despite less than optimal inspiratory effort no new focal lobar consolidation i.e. no atelectasis/infiltrate. 5. No peripheral "groundglass" lung densities. 6. No pneumothorax or pneumomediastinum. No free subdiaphragmatic air.
[2020-07-05 13:43] LABS: ANION GAP 10.1 mEq/L (7-13); CHLORIDE,CL 99 mmol/L (98-107); SODIUM,NA 134 mmol/L (136-145)
[2020-07-05 13:51] VITALS: BP 152/74; PULSE 60
--- NOTE | 2020-07-05 14:12 | EDM.PDOC ---
ED HPI GENERAL MEDICAL PROBLEM - General Chief Complaint: Chest Pain Stated Complaint: HEART ATTACK Time Seen by Provider: 07/05/20 13:55 Source of Information: Reports: Patient, Provider History Limitations: Reports: No Limitations - History of Present Illness INITIAL COMMENTS - FREE TEXT/NARRATIVE: This 70 yo female patient reports to the emergency department due to chest pain that radiates to her left arm. The patient reports she has been having similar pains for the past 1 1/2 years (after she had her quadruple bypass). The patient also reports she has been feeling a "burning" in her throat due to acid reflux. The patient reports she has an appointment in [place] for her throat. The patient reports she believes her symptoms have been worse over the past 4 days. The patient reports she has been taking her GERD medications as prescribed, but continues to have problems. Onset Date: 07/01/20 Duration: Constant Location: Reports: Neck, Chest, Upper Extremity, Left Quality: Reports: Ache, Dull Severity: Moderate Improves with: Reports: None Worsens with: Reports: None Context: Reports: Other Associated Symptoms: Reports: No Other Symptoms - Related Data Allergies Allergy/AdvReac Type Severity Reaction Status Date / Time chocolate flavor Allergy Hives Verified 07/05/20 13:58 diazepam [From Valium] Allergy Confusion Verified 07/05/20 13:58 diphenhydramine Allergy Confusion Verified 07/05/20 13:58 [From Benadryl] kiwi Allergy Blisters Verified 07/05/20 13:58 lisinopril [From Prinivil] Allergy Swollen Verified 07/05/20 13:58 Tongue metformin [From Glucophage] Allergy Cough Verified 07/05/20 13:58 pantoprazole Allergy Other Verified 07/05/20 13:58 pineapple Allergy Blisters Verified 07/05/20 13:58 BEE VENOM Allergy Swelling Uncoded 07/05/20 13:58 Home Meds: Home Meds Acetaminophen [Tylenol Extra Strength] 1,000 mg PO BID PRN 04/28/16 [History] Aspirin [Halfprin] 81 mg PO DAILY 04/28/16 [History] Calcium Citrate/Vitamin D3 [Calcium Citrate + D] 1 tab PO DAILY 04/28/16 [History] Insulin Aspart [Novolog Flexpen] 10 - 20 units SQ TIDMEALS 04/28/16 [History] Insulin Detemir [Levemir Flextouch] 40 unit SQ BEDTIME 04/28/16 [History] Multivitamin [Multivitamins] 1 cap PO DAILY 04/28/16 [History] atorvaSTATin [Lipitor] 40 mg PO BEDTIME 04/28/16 [History] Metoprolol Tartrate 12.5 mg PO BID 03/12/19 [History] Omeprazole 20 mg PO DAILY 03/12/19 [History] Alogliptin Benzoate [Alogliptin] 12.5 mg PO DAILY 03/26/20 [History] Betamethasone Dipropionate [Betamethasone Diprop Augmented] 1 applic TOP BID PRN 03/26/20 [History] Cholecalciferol (Vitamin D3) [Vitamin D3] 25 mcg PO DAILY 03/26/20 [History] Fluticasone Propionate [Flonase] 1 spray NASBOTH BEDTIME 03/26/20 [History] Losartan [Cozaar] 25 mg PO DAILY 03/26/20 [History] Montelukast [Singulair] 10 mg PO BEDTIME 03/26/20 [History] Albuterol [Proair HFA] 1 puff INH Q4H PRN 04/18/20 [History] Cetirizine HCl 10 mg PO BEDTIME 04/18/20 [History] Past Medical History HEENT History: Reports: Cataract, Hard of Hearing, Impaired Vision Other HEENT History: wears glasses Cardiovascular History: Reports: CAD, High Cholesterol, Hypertension, [place] Respiratory History: Reports: None Gastrointestinal History: Reports: GERD, Hiatal Hernia Other Gastrointestinal History: SCHATZKI'S RING 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 History: Reports: Chronic Renal Insuffiency Other 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 History: RENAL STENT HEDIS SPECIALIST History: Reports: Musculoskeletal History: Reports: Osteoarthritis Other Musculoskeletal History: FRACTURED LEFT ANKLE X3 Neurological History: Reports: None Psychiatric History: Reports: None Endocrine/Metabolic History: Reports: Diabetes, Type II Hematologic History: Reports: None Immunologic History: Reports: None Oncologic (Cancer) History: Reports: None Dermatologic History: Reports: None - Infectious Disease History Infectious Disease History: Reports: Chicken Pox, Measles, Mumps - Past Surgical History Head Surgeries/Procedures: Reports: None HEENT Surgical History: Reports: Cataract Surgery Cardiovascular Surgical History: Reports: Coronary Artery Bypass, Coronary Artery Stent Other Cardiovascular Surgeries/Procedures: ELECTROCARDIOGRAM Respiratory Surgical History: Reports: None GI Surgical History: Reports: EGD, Esophageal Dilatation Female Surgical History: Reports: None Endocrine Surgical History: Reports: None Neurological Surgical History: Reports: None Musculoskeletal Surgical History: Reports: Other (See Below) Other Musculoskeletal Surgeries/Procedures:: left knee surgery Oncologic Surgical History: Reports: None Dermatological Surgical History: Reports: None Social & Family History - Family History Family Medical History: No Pertinent Family History Cardiac: Reports: High Cholesterol, Hypertension, [place] : Reports: Dialysis Musculoskeletal: Reports: Arthritis Endocrine/Metabolic: Reports: Diabetes, type II Oncologic: Reports: Lung - Tobacco Use Tobacco Use Status *Q: Never Tobacco User Second Hand Smoke Exposure: No - Caffeine Use Caffeine Use: Reports: Coffee - Recreational Drug Use Recreational Drug Use: No - Living Situation & Occupation Living situation: Reports: with Family Occupation: Retired ED ROS GENERAL - Review of Systems Review Of Systems: Comprehensive ROS is negative, except as noted in HPI. ED EXAM, GENERAL - Physical Exam Exam: See Below Exam Limited By: No Limitations General Appearance: Alert, WD/WN, Anxious, Mild Distress Eye Exam: Bilateral Eye: EOMI, Normal Inspection, PERRL Ears: Normal External Exam, Normal Canal, Hearing Grossly Normal, Normal TMs Nose: Normal Inspection, Normal Mucosa, No Blood Throat/Mouth: Normal Inspection, Normal Lips, Normal Teeth, Normal Gums, Normal Oropharynx, Normal Voice, No Airway Compromise Head: Atraumatic, Normocephalic Neck: Normal Inspection, Supple, Non-Tender, Full Range of Motion Respiratory/Chest: No Respiratory Distress, Lungs Clear, Normal Breath Sounds, No Accessory Muscle Use, Chest Non-Tender Cardiovascular: Normal Peripheral Pulses, Regular Rate, Rhythm, No Edema, No Gallop, No JVD, No Murmur, No Rub GI/Abdominal: Normal Bowel Sounds, Soft, Non-Tender, No Organomegaly, No Distention, No Abnormal Bruit, No Mass (Female) Exam: Deferred Rectal (Female) Exam: Deferred Back Exam: Normal Inspection, Full Range of Motion, NT Extremities: Normal Inspection, Normal Range of Motion, Non-Tender, Normal Capillary Refill, No Pedal Edema Neurological: Alert, Oriented, CN II-XII Intact, Normal Cognition, Normal Gait, Normal Reflexes, No Motor/Sensory Deficits Psychiatric: Normal Affect, Normal Mood Skin Exam: Warm, Dry, Intact, Normal Color, No Rash Lymphatic: No Adenopathy Course - Vital Signs Last Recorded V/S: Last Vital Signs Temp 36.4 C 07/05/20 12:37 Pulse 60 07/05/20 12:37 Resp 18 07/05/20 12:37 BP 152/74 H 07/05/20 12:37 Pulse Ox 98 07/05/20 12:37 - Orders/Labs/Meds Orders: Active Orders 24 hr Category Date Time Status EKG Documentation Completion [RC] STAT Care 07/05/20 12:36 Active CULTURE BLOOD [BC] Stat Lab 07/05/20 13:08 Received CULTURE STREP A CONFIRMATION [RM] Stat Lab 07/05/20 14:05 Results STREP SCRN A RAPID W CULT CONF [RM] Stat Lab 07/05/20 14:01 Ordered Labs: Laboratory Tests 07/05/20 07/05/20 07/05/20 Range/Units 13:08 13:08 13:08 WBC 6.1 (5.0-10.0) 10^3/uL RBC 3.99 L (4.2-5.4) 10^6/uL Hgb 11.9 L (12.0-16.0) g/dL Hct 34.6 L (37.0-47.0) % MCV 86.7 (80-100) fL MCH 29.8 (27.0-34.0) pg MCHC 34.4 (33.0-35.0) g/dL Plt Count 199 (150-450) 10^3/uL Neut % (Auto) 67.4 (42.2-75.2) % Lymph % (Auto) 22.4 (20.5-50.1) % Lanier % (Auto) 7.9 (2-8) % Eos % (Auto) 2.0 (1.0-3.0) % Baso % (Auto) 0.3 (0.0-1.0) % PT 9.8 (9.0-12.0) SEC INR 1.0 (0.9-1.2) Sodium 134 L (136-145) mmol/L Potassium 4.1 (3.5-5.1) mmol/L Chloride 99 (98-107) mmol/L Carbon Dioxide 29 (21-32) mmol/L Anion Gap 10.1 (7-13) mEq/L BUN 20 H (7-18) mg/dL Creatinine 1.23 H (0.55-1.02) mg/dL Est Cr Clr Drug Dosing TNP Estimated GFR (MDRD) 43 BUN/Creatinine Ratio 16.3 (No establ ref range) Glucose 92 (74-99) mg/dL Lactic Acid (0.4-2.0) mmol/L Calcium 8.9 (8.5-10.1) mg/dL Total Bilirubin 0.5 (0.2-1.0) mg/dL AST 18 (15-37) U/L ALT 21 (14-59) U/L Alkaline Phosphatase 107 (46-116) U/L Troponin I < 0.017 (0.000-0.056) ng/mL Total Protein 7.1 (6.4-8.2) g/dL Albumin 3.4 (3.4-5.0) g/dL Globulin 3.7 Albumin/Globulin Ratio 0.9 SARS CoV-2 RNA Rapid KIYA (NEGATIVE) 07/05/20 07/05/20 Range/Units 13:08 14:05 WBC (5.0-10.0) 10^3/uL RBC (4.2-5.4) 10^6/uL Hgb (12.0-16.0) g/dL Hct (37.0-47.0) % MCV (80-100) fL MCH (27.0-34.0) pg MCHC (33.0-35.0) g/dL Plt Count (150-450) 10^3/uL Neut % (Auto) (42.2-75.2) % Lymph % (Auto) (20.5-50.1) % Lanier % (Auto) (2-8) % Eos % (Auto) (1.0-3.0) % Baso % (Auto) (0.0-1.0) % PT (9.0-12.0) SEC INR (0.9-1.2) Sodium (136-145) mmol/L Potassium (3.5-5.1) mmol/L Chloride (98-107) mmol/L Carbon Dioxide (21-32) mmol/L Anion Gap (7-13) mEq/L BUN (7-18) mg/dL Creatinine (0.55-1.02) mg/dL Est Cr Clr Drug Dosing Estimated GFR (MDRD) BUN/Creatinine Ratio (No establ ref range) Glucose (74-99) mg/dL Lactic Acid 0.9 (0.4-2.0) mmol/L Calcium (8.5-10.1) mg/dL Total Bilirubin (0.2-1.0) mg/dL AST (15-37) U/L ALT (14-59) U/L Alkaline Phosphatase (46-116) U/L Troponin I (0.000-0.056) ng/mL Total Protein (6.4-8.2) g/dL Albumin (3.4-5.0) g/dL Globulin Albumin/Globulin Ratio SARS CoV-2 RNA Rapid KIYA Negative (NEGATIVE) Departure - Departure Time of Disposition: 15:07 Disposition: Home, Self-Care 01 Condition: Fair Clinical Impression: Nonspecific chest pain Instructions: Nonspecific Chest Pain, Adult, [id number] Forms: ED Department Discharge Care Plan Goals: The patient was advised of her examination, lab, EKG and x-ray results during the visit. 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 If the patient has any additional symptoms or concerns, the patient should either return to the emergency department or visit her primary care facility. Sepsis Event Note (ED) - Evaluation Sepsis Screening Result: No Definite Risk - Focused Exam Vital Signs: Vital Signs Temp Pulse Resp BP Pulse Ox 07/05/20 12:37 36.4 C 60 18 152/74 H 98 - My Orders Last 24 Hours: My Active Orders 07/05/20 12:36 EKG Documentation Completion [RC] STAT 07/05/20 13:08 CULTURE BLOOD [BC] Stat 07/05/20 14:01 STREP SCRN A RAPID W CULT CONF [RM] Stat 07/05/20 14:05 CULTURE STREP A CONFIRMATION [RM] Stat - Assessment/Plan Last 24 Hours: My Active Orders 07/05/20 12:36 EKG Documentation Completion [RC] STAT 07/05/20 13:08 CULTURE BLOOD [BC] Stat 07/05/20 14:01 STREP SCRN A RAPID W CULT CONF [RM] Stat 07/05/20 14:05 CULTURE STREP A CONFIRMATION [RM] Stat
== END 2020-07-05 15:17 | disposition home or self-care (01) ==
LOC: DL.ED 12:37
DX: R07.9 Chest pain, unspecified (principal); I12.9 Hypertensive chronic kidney disease with stage 1 through stage 4 chronic kidney disease, or unspecified chronic kidney disease; E11.22 Type 2 diabetes mellitus with diabetic chronic kidney disease; N18.9 Chronic kidney disease, unspecified; I25.10 Atherosclerotic heart disease of native coronary artery without angina pectoris; E78.00 Pure hypercholesterolemia, unspecified; I25.2 Old myocardial infarction; K21.9 Gastro-esophageal reflux disease without esophagitis; M19.90 Unspecified osteoarthritis, unspecified site; Z91.018 Allergy to other foods; Z88.8 Allergy status to other drugs, medicaments and biological substances; Z91.030 Bee allergy status; Z79.82 Long term (current) use of aspirin; Z79.899 Other long term (current) drug therapy; Z79.4 Long term (current) use of insulin; Z20.828 Contact with and (suspected) exposure to other viral communicable diseases
CPT/HCPCS: 36415; 71045; 80053; 83605; 84484; 85025; 85610; 87040; 87081; 87430; 93005; 93010; 99283; 99285-25; U0002

== ENCOUNTER 2020-11-10 00:44 | Emergency (ER) | payer MEDICARE, OTHER ==
--- NOTE | 2020-11-10 01:01 | EDM.PDOC ---
ED HPI GENERAL MEDICAL PROBLEM - General Time Seen by Provider: 11/10/20 00:56 Source of Information: Reports: Patient, EMS, EMS Notes Reviewed, RN, RN Notes Reviewed History Limitations: Reports: No Limitations - History of Present Illness INITIAL COMMENTS - FREE TEXT/NARRATIVE: Patient is a 70-year-old female who presents to ER per [place] [facility] with complaint of dizziness this evening. Patient states she has been doctoring at the [facility]. States she was told to hold her Levemir in the evenings, as she states she wakes up in the middle of the night seeing spots. Her primary care provider instructed her to hold her Levemir. Patient states this evening she was getting ready for bed and she did become dizzy a few different times. States the first time she was looking up and putting something away on a shelf, again when she got up from her bed. Patient states she feels as though her head is spinning. History of hypertension, diabetes. Patient states she has a history of hyponatremia, and was concerned that that was what was causing her dizziness. Patient states she has had some hypoglycemic episodes as well, last being today. She states her blood sugar was in the 60s, she drank a can of Coke which brought her blood sugar up. Patient denies any recent illness or injury, denies nausea, vomiting, diarrhea, fever, chills, shortness of breath. Patient states from time to time she does have a pulling sensation in the left anterior chest. She states this has been present since her bypass surgery in January 2019. Onset: Today - Related Data Allergies Allergy/AdvReac Type Severity Reaction Status Date / Time chocolate flavor Allergy Hives Verified 11/10/20 01:29 diazepam [From Valium] Allergy Confusion Verified 11/10/20 01:29 diphenhydramine Allergy Confusion Verified 11/10/20 01:29 [From Benadryl] kiwi Allergy Blisters Verified 11/10/20 01:29 lisinopril [From Prinivil] Allergy Swollen Verified 11/10/20 01:29 Tongue metformin [From Glucophage] Allergy Cough Verified 11/10/20 01:29 pantoprazole Allergy Other Verified 11/10/20 01:29 pineapple Allergy Blisters Verified 11/10/20 01:29 BEE VENOM Allergy Swelling Uncoded 11/10/20 01:29 Home Meds: Home Meds Acetaminophen [Tylenol Extra Strength] 1,000 mg PO BID PRN 04/28/16 [History] Aspirin [Halfprin] 81 mg PO DAILY 04/28/16 [History] Calcium Citrate/Vitamin D3 [Calcium Citrate + D] 1 tab PO DAILY 04/28/16 [History] Insulin Aspart [Novolog Flexpen] 10 - 20 units SQ TIDMEALS 04/28/16 [History] Insulin Detemir [Levemir Flextouch] 46 unit SQ BEDTIME 04/28/16 [History] Multivitamin [Multivitamins] 1 cap PO DAILY 04/28/16 [History] atorvaSTATin [Lipitor] 40 mg PO BEDTIME 04/28/16 [History] Metoprolol Tartrate 25 mg PO BID 03/12/19 [History] Omeprazole 20 mg PO DAILY 03/12/19 [History] Alogliptin Benzoate [Alogliptin] 12.5 mg PO DAILY 03/26/20 [History] Betamethasone Dipropionate [Betamethasone Diprop Augmented] 1 applic TOP BID PRN 03/26/20 [History] Cholecalciferol (Vitamin D3) [Vitamin D3] 25 mcg PO DAILY 03/26/20 [History] Fluticasone Propionate [Flonase] 1 spray NASBOTH BEDTIME 03/26/20 [History] Losartan [Cozaar] 50 mg PO DAILY 03/26/20 [History] Montelukast [Singulair] 10 mg PO BEDTIME 03/26/20 [History] Albuterol [Proair HFA] 1 puff INH Q4H PRN 04/18/20 [History] Cetirizine HCl 10 mg PO BEDTIME 04/18/20 [History] Magnesium Oxide [Magnesium] 400 mg PO DAILY 11/10/20 [History] Past Medical History HEENT History: Reports: Cataract, Hard of Hearing, Impaired Vision Other HEENT History: wears glasses Cardiovascular History: Reports: CAD, High Cholesterol, Hypertension, [place] Respiratory History: Reports: None Gastrointestinal History: Reports: GERD, Hiatal Hernia Other Gastrointestinal History: SCHATZKI'S RING 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 History: Reports: Chronic Renal Insuffiency, Other (See Below) Other 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 History: RENAL STENT. Renal artery stenosis [employer]STATE [employer]ING [place] History: Reports: Musculoskeletal History: Reports: Osteoarthritis Other Musculoskeletal History: FRACTURED LEFT ANKLE X3 Neurological History: Reports: None Psychiatric History: Reports: None Endocrine/Metabolic History: Reports: Diabetes, Type II Hematologic History: Reports: None Immunologic History: Reports: None Oncologic (Cancer) History: Reports: None Dermatologic History: Reports: None - Infectious Disease History Infectious Disease History: Reports: Chicken Pox, Measles, Mumps - Past Surgical History Head Surgeries/Procedures: Reports: None HEENT Surgical History: Reports: Cataract Surgery Cardiovascular Surgical History: Reports: Coronary Artery Bypass, Coronary Artery Stent Other Cardiovascular Surgeries/Procedures: ELECTROCARDIOGRAM Respiratory Surgical History: Reports: None GI Surgical History: Reports: EGD, Esophageal Dilatation Female Surgical History: Reports: None Endocrine Surgical History: Reports: None Neurological Surgical History: Reports: None Musculoskeletal Surgical History: Reports: Other (See Below) Other Musculoskeletal Surgeries/Procedures:: left knee surgery Oncologic Surgical History: Reports: None Dermatological Surgical History: Reports: None Social & Family History - Family History Family Medical History: No Pertinent Family History Cardiac: Reports: High Cholesterol, Hypertension, SD : Reports: Dialysis Musculoskeletal: Reports: Arthritis Endocrine/Metabolic: Reports: Diabetes, type II Oncologic: Reports: Lung - Caffeine Use Caffeine Use: Reports: Coffee - Living Situation & Occupation Living situation: Reports: with Family Occupation: Retired ED ROS GENERAL - Review of Systems Review Of Systems: Comprehensive ROS is negative, except as noted in HPI. ED EXAM, DIZZINESS - Physical Exam Exam: See Below Exam Limited By: No Limitations General Appearance: Alert, WD/WN, No Apparent Distress Eye Exam: Bilateral Eye: EOMI, Normal Inspection Nystagmus: short duration (Patient sat up in bed, ambulated to the bathroom without dizziness) Ears: Normal External Exam, Hearing Grossly Normal Nose: Normal Inspection, Normal Mucosa, No Blood Throat/Mouth: Normal Inspection, Normal Lips, Normal Teeth, Normal Gums, Normal Oropharynx, Normal Voice, No Airway Compromise Head Exam: Atraumatic, Normocephalic Neck: Normal Inspection, Supple, Non-Tender, Full Range of Motion Respiratory/Chest: No Respiratory Distress, Lungs Clear, Normal Breath Sounds, No Accessory Muscle Use, Chest Non-Tender Cardiovascular: Normal Peripheral Pulses, Regular Rate, Rhythm, No Edema, No Gallop, No JVD, No Murmur, No Rub GI/Abdominal: Normal Bowel Sounds, Soft, Non-Tender, No Organomegaly, No Distention, No Abnormal Bruit, No Mass (Female) Exam: Deferred Rectal (Female) Exam: Deferred Neurological: Alert, Normal Mood/Affect, Normal Dorsiflexion, CN II-XII Intact, Normal Plantar Flexion, Normal Gait, Normal Reflexes, No Motor/Sensory Deficits, Oriented x 3 Back Exam: Normal Inspection, Full Range of Motion, NT Extremities: Normal Inspection, Normal Range of Motion, Non-Tender, No Pedal Edema, Normal Capillary Refill Psychiatric: Normal Affect, Normal Mood Skin Exam: Warm, Dry, Intact, Normal Color, No Rash #1 Interpretation EKG Date: 11/10/20 Time: 00:51 Rhythm: NSR Rate (Beats/Min): 62 [place]: Normal P-Wave: Present QRS: Normal ST-T: Normal QT: Normal Comparison: No Change Course - Vital Signs Last Recorded V/S: Last Vital Signs Temp 97.2 F 11/10/20 01:03 Pulse 66 11/10/20 01:03 Resp 14 11/10/20 01:03 BP 209/72 H 11/10/20 01:03 Pulse Ox 98 11/10/20 01:03 - Orders/Labs/Meds Orders: Active Orders 24 hr Category Date Time Status Blood Glucose Check, Bedside [RC] ONETIME Care 11/10/20 01:07 Active EKG Documentation Completion [RC] STAT Care 11/10/20 00:55 Active CULTURE URINE [] Stat Lab 11/10/20 01:25 Received Sodium Chloride 0.9% [Normal Saline] 1,000 ml Med 11/10/20 01:34 Active IV .BOLUS Medication Orders Sodium Chloride (Normal Saline) 1,000 mls @ 999 mls/hr IV .BOLUS ONE Stop: 11/10/20 02:34 Last Admin: 11/10/20 01:41 Dose: 999 mls/hr Documented by: [id number] Labs: Laboratory Tests 11/10/20 11/10/20 11/10/20 Range/Units 01:04 01:04 01:09 WBC 6.7 (5.0-10.0) 10^3/uL RBC 3.98 L (4.2-5.4) 10^6/uL Hgb 11.6 L (12.0-16.0) g/dL Hct 34.0 L (37.0-47.0) % MCV 85.4 (80-100) fL MCH 29.1 (27.0-34.0) pg MCHC 34.1 (33.0-35.0) g/dL Plt Count 246 (150-450) 10^3/uL Neut % (Auto) 63.5 (42.2-75.2) % Lymph % (Auto) 25.0 (20.5-50.1) % [place] % (Auto) 8.2 H (2-8) % Eos % (Auto) 3.0 (1.0-3.0) % Baso % (Auto) 0.3 (0.0-1.0) % Sodium 130 L (136-145) mmol/L Potassium 4.0 (3.5-5.1) mmol/L Chloride 94 L (98-107) mmol/L Carbon Dioxide 28 (21-32) mmol/L Anion Gap 12.0 (7-13) mEq/L BUN 15 (7-18) mg/dL Creatinine 1.07 H (0.55-1.02) mg/dL Est Cr Clr Drug Dosing TNP Estimated GFR (MDRD) 51 BUN/Creatinine Ratio 14.0 (No establ ref range) Glucose 181 H (70-99) mg/dL POC Glucose 192 H (70-105) mg/dl Calcium 8.7 (8.5-10.1) mg/dL Total Bilirubin 0.3 (0.2-1.0) mg/dL AST 20 (15-37) U/L ALT 23 (14-59) U/L Alkaline Phosphatase 107 (46-116) U/L Troponin I < 0.017 (0.000-0.056) ng/mL Total Protein 7.1 (6.4-8.2) g/dL Albumin 3.2 L (3.4-5.0) g/dL Globulin 3.9 Albumin/Globulin Ratio 0.82 Urine Color (YELLOW) Urine Appearance (CLEAR) Urine pH (5.0-9.0) Ur Specific [place] (1.005-1.030) Urine Protein (NEGATIVE) Urine Glucose (UA) (NEGATIVE) Urine Ketones (NEGATIVE) Urine Occult Blood (NEGATIVE) Urine Nitrite (NEGATIVE) Urine Bilirubin (NEGATIVE) Urine Urobilinogen (0.2-1.0) mg/dL Ur Leukocyte Esterase (NEGATIVE) Urine RBC /HPF Urine WBC (0-5/HPF) /HPF Ur Epithelial Cells (NOT SEEN) /HPF Urine Bacteria (0-FEW/HPF) /HPF Urine Mucus (NOT SEEN) /LPF 11/10/20 Range/Units 01:25 WBC (5.0-10.0) 10^3/uL RBC (4.2-5.4) 10^6/uL Hgb (12.0-16.0) g/dL Hct (37.0-47.0) % MCV (80-100) fL MCH (27.0-34.0) pg MCHC (33.0-35.0) g/dL Plt Count (150-450) 10^3/uL Neut % (Auto) (42.2-75.2) % Lymph % (Auto) (20.5-50.1) % [place] % (Auto) (2-8) % Eos % (Auto) (1.0-3.0) % Baso % (Auto) (0.0-1.0) % Sodium (136-145) mmol/L Potassium (3.5-5.1) mmol/L Chloride (98-107) mmol/L Carbon Dioxide (21-32) mmol/L Anion Gap (7-13) mEq/L BUN (7-18) mg/dL Creatinine (0.55-1.02) mg/dL Est Cr Clr Drug Dosing Estimated GFR (MDRD) BUN/Creatinine Ratio (No establ ref range) Glucose (70-99) mg/dL POC Glucose (70-105) mg/dl Calcium (8.5-10.1) mg/dL Total Bilirubin (0.2-1.0) mg/dL AST (15-37) U/L ALT (14-59) U/L Alkaline Phosphatase (46-116) U/L Troponin I (0.000-0.056) ng/mL Total Protein (6.4-8.2) g/dL Albumin (3.4-5.0) g/dL Globulin Albumin/Globulin Ratio Urine Color Light yellow (YELLOW) Urine Appearance Slightly cloudy (CLEAR) Urine pH 5.5 (5.0-9.0) Ur Specific [place] 1.010 (1.005-1.030) Urine Protein 30 H (NEGATIVE) Urine Glucose (UA) Negative (NEGATIVE) Urine Ketones Negative (NEGATIVE) Urine Occult Blood Negative (NEGATIVE) Urine Nitrite Negative (NEGATIVE) Urine Bilirubin Negative (NEGATIVE) Urine Urobilinogen 0.2 (0.2-1.0) mg/dL Ur Leukocyte Esterase Trace H (NEGATIVE) Urine RBC 0-5 /HPF Urine WBC 10-20 H (0-5/HPF) /HPF Ur Epithelial Cells Occasional (NOT SEEN) /HPF Urine Bacteria Few (0-FEW/HPF) /HPF Urine Mucus Rare (NOT SEEN) /LPF Meds: Medications Generic Name Dose Route Start Last Admin Trade Name Freq PRN Reason Stop Dose Admin Sodium Chloride 1,000 mls @ 999 mls/hr 11/10/20 01:34 11/10/20 01:41 Normal Saline IV 11/10/20 02:34 999 mls/hr .BOLUS ONE Administration Discontinued Medications Generic Name Dose Route Start Last Admin Trade Name Freq PRN Reason Stop Dose Admin Nitrofurantoin Macrocrystals 100 mg 11/10/20 02:28 Nitrofurantoin Monohydrate/Macrocrystalline 100 Mg Cap PO 11/10/20 02:29 ONETIME ONE - Radiology Interpretation Free Text/Narrative:: chest xray: PROCEDURE INFORMATION: Exam: XR Chest Exam date and time: 11/10/2020 1:54 AM Age: 70 years old Clinical indication: Other: Chest pain TECHNIQUE: Imaging protocol: XR of the chest Views: 1 view. COMPARISON: CR Chest 1V Frontal 07/05/2020 12:57 PM FINDINGS: Lungs: Unremarkable. No consolidation. Pleural spaces: Unremarkable. No pleural effusion. No pneumothorax. Heart/Mediastinum: Unremarkable. No cardiomegaly. Bones/joints: There has been a median sternotomy. IMPRESSION: No acute disease. Thank you for allowing us to participate in the care of your patient. Dictated and Authenticated by: Michoacano Aquino DO 11/10/2020 2:22 AM Central Time ([place] & [place]) See rad report Departure - Departure Time of Disposition: 02:34 Disposition: Home, Self-Care 01 Condition: Good Clinical Impression: Dizziness UTI (urinary tract infection) Qualifiers: Urinary tract infection type: acute cystitis Hematuria presence: without hematuria Qualified Code(s): N30.00 - Acute cystitis without hematuria Hypertension Qualifiers: Hypertension type: essential hypertension Qualified Code(s): I10 - Essential (primary) hypertension - Discharge Information *PRESCRIPTION DRUG MONITORING PROGRAM REVIEWED*: No *COPY OF PRESCRIPTION DRUG MONITORING REPORT IN PATIENT GARTH: No Instructions: Urinary Tract Infection, Adult, [id number], Dizziness, [id number], Hypertension, Adult, [id number] Forms: ED Department Discharge Additional Instructions: Drink plenty of water RX: Macrobid 100mg orally twice daily for 3 days Follow up with your primary care facility Return to the ER with any worsening of symptoms Sepsis Event Note (ED) - Focused Exam Vital Signs: Vital Signs Temp Pulse Resp BP Pulse Ox 11/10/20 01:03 97.2 F 66 14 209/72 H 98 - My Orders Last 24 Hours: My Active Orders 11/10/20 00:55 EKG Documentation Completion [RC] STAT 11/10/20 01:07 Blood Glucose Check, Bedside [RC] ONETIME 11/10/20 01:25 CULTURE URINE [RM] Stat 11/10/20 01:34 Sodium Chloride 0.9% [Normal Saline] 1,000 ml IV .BOLUS - Assessment/Plan Last 24 Hours: My Active Orders 11/10/20 00:55 EKG Documentation Completion [RC] STAT 11/10/20 01:07 Blood Glucose Check, Bedside [RC] ONETIME 11/10/20 01:25 CULTURE URINE [RM] Stat 11/10/20 01:34 Sodium Chloride 0.9% [Normal Saline] 1,000 ml IV .BOLUS
[2020-11-10 01:23] VITALS: BP 209/72; PULSE 66
[2020-11-10 01:30] LABS: CHLORIDE,CL 94 mmol/L (98-107); SODIUM,NA 130 mmol/L (136-145)
[2020-11-10] MEDS ORDERED: Sodium Chloride 0.9% 1,000 ML IV ONE (01:34)
--- NOTE | 2020-11-10 02:22 | CR ---
PROCEDURE INFORMATION: Exam: XR Chest Exam date and time: 11/10/2020 1:54 AM Age: 70 years old Clinical indication: Other: Chest pain TECHNIQUE: Imaging protocol: XR of the chest Views: 1 view. COMPARISON: CR Chest 1V Frontal 07/05/2020 12:57 PM FINDINGS: Lungs: Unremarkable. No consolidation. Pleural spaces: Unremarkable. No pleural effusion. No pneumothorax. Heart/Mediastinum: Unremarkable. No cardiomegaly. Bones/joints: There has been a median sternotomy. IMPRESSION: No acute disease.
[2020-11-10] MEDS ORDERED: Nitrofurantoin Monohydrate/Macrocrystalline 100 MG Cap PO ONE (02:28)
== END 2020-11-10 03:16 | disposition home or self-care (01) ==
LOC: DL.ED 00:44
DX: R42 Dizziness and giddiness (principal); I12.9 Hypertensive chronic kidney disease with stage 1 through stage 4 chronic kidney disease, or unspecified chronic kidney disease; N30.00 Acute cystitis without hematuria; E11.22 Type 2 diabetes mellitus with diabetic chronic kidney disease; K21.9 Gastro-esophageal reflux disease without esophagitis; I25.10 Atherosclerotic heart disease of native coronary artery without angina pectoris; I25.2 Old myocardial infarction; N18.9 Chronic kidney disease, unspecified; E78.00 Pure hypercholesterolemia, unspecified; Z79.899 Other long term (current) drug therapy; Z95.1 Presence of aortocoronary bypass graft; Z91.030 Bee allergy status; Z91.018 Allergy to other foods; Z88.8 Allergy status to other drugs, medicaments and biological substances; Z79.82 Long term (current) use of aspirin; Z79.4 Long term (current) use of insulin; Z95.5 Presence of coronary angioplasty implant and graft
CPT/HCPCS: 36415; 71045; 80053; 81001; 82962; 84484; 85025; 87086; 87088; 87186; 93005; 93010; 99284; A9270; J7030

== ENCOUNTER 2021-03-28 09:44 | Emergency (ER) | payer OTHER ==
[2021-03-28 10:10] VITALS: BP 118/70; PULSE 81
--- NOTE | 2021-03-28 10:48 | CR ---
PROCEDURE INFORMATION: Exam: XR Chest Exam date and time: 03/28/2021 10:28 AM Age: 71 years old Clinical indication: Shortness of breath and wheezing; Additional info: Shortness of breath; Wheezing TECHNIQUE: Imaging protocol: XR of the chest. Views: 1 view. COMPARISON: CR Chest 1V Frontal 11/10/2020 1:54 AM FINDINGS: Lungs: Unremarkable. No consolidation. Pleural spaces: Unremarkable. No pleural effusion. No pneumothorax. Heart/Mediastinum: Unremarkable. No cardiomegaly. Bones/joints: Median sternotomy wires IMPRESSION: No acute cardiopulmonary findings.
[2021-03-28 10:59] LABS: ANION GAP 11.8 mEq/L (7-13)
--- NOTE | 2021-03-28 11:07 | EDM.PDOC ---
ED HPI GENERAL MEDICAL PROBLEM - General Chief Complaint: General Stated Complaint: IN BY AMBULANCE Time Seen by Provider: 03/28/21 10:30 Source of Information: Reports: Patient, EMS, Old Records, RN, RN Notes Reviewed History Limitations: Reports: No Limitations - History of Present Illness INITIAL COMMENTS - FREE TEXT/NARRATIVE: Annamaria is a 71 y/o female who presents to the ED via personal vehicle with complaints of productive cough, congestion, decreased appetite, and general malaise. The patient reports her symptoms began two weeks ago and have progressively worsened in that time. She notes she was examined in clinic one week ago and given an antihistamine which provided minimal alleviation of symptoms. The patient denies fever, shaking chills, chest pain, palpitations, dyspepsia, nausea, or vomiting. She does attest to sore throat and lower abdominal pain while coughing. She has taken OTC cough syrup which has provided no alleviation in symptoms. The patient denies tobacco, alcohol, or recreational drug use. right hip Pain Score (Numeric/FACES): 5 - Related Data Allergies Allergy/AdvReac Type Severity Reaction Status Date / Time chocolate flavor Allergy Hives Verified 03/28/21 10:12 diazepam [From Valium] Allergy Confusion Verified 03/28/21 10:12 diphenhydramine Allergy Confusion Verified 03/28/21 10:12 [From Benadryl] kiwi Allergy Blisters Verified 03/28/21 10:12 lisinopril [From Prinivil] Allergy Swollen Verified 03/28/21 10:12 Tongue metformin [From Glucophage] Allergy Cough Verified 03/28/21 10:12 pantoprazole Allergy Other Verified 03/28/21 10:12 pineapple Allergy Blisters Verified 03/28/21 10:12 BEE VENOM Allergy Swelling Uncoded 11/10/20 01:29 Home Meds: Home Meds Acetaminophen [Tylenol Extra Strength] 1,000 mg PO BID PRN 04/28/16 [History] Aspirin [Halfprin] 81 mg PO DAILY 04/28/16 [History] Calcium Citrate/Vitamin D3 [Calcium Citrate + D] 1 tab PO DAILY 04/28/16 [History] Insulin Aspart [Novolog Flexpen] 10 - 20 units SQ TIDMEALS 04/28/16 [History] Insulin Detemir [Levemir Flextouch] 46 unit SQ BEDTIME 04/28/16 [History] Multivitamin [Multivitamins] 1 cap PO DAILY 04/28/16 [History] atorvaSTATin [Lipitor] 40 mg PO BEDTIME 04/28/16 [History] Metoprolol Tartrate 25 mg PO BID 03/12/19 [History] Omeprazole 20 mg PO DAILY 03/12/19 [History] Alogliptin Benzoate [Alogliptin] 12.5 mg PO DAILY 03/26/20 [History] Betamethasone Dipropionate [Betamethasone Diprop Augmented] 1 applic TOP BID PRN 03/26/20 [History] Cholecalciferol (Vitamin D3) [Vitamin D3] 25 mcg PO DAILY 03/26/20 [History] Fluticasone Propionate [Flonase] 1 spray NASBOTH BEDTIME 03/26/20 [History] Losartan [Cozaar] 50 mg PO DAILY 03/26/20 [History] Montelukast [Singulair] 10 mg PO BEDTIME 03/26/20 [History] Albuterol [Proair HFA] 1 puff INH Q4H PRN 04/18/20 [History] Cetirizine HCl 10 mg PO BEDTIME 04/18/20 [History] Magnesium Oxide [Magnesium] 400 mg PO DAILY 11/10/20 [History] Past Medical History HEENT History: Reports: Cataract, Hard of Hearing, Impaired Vision Other HEENT History: wears glasses Cardiovascular History: Reports: CAD, High Cholesterol, Hypertension, [place] Respiratory History: Reports: Asthma Gastrointestinal History: Reports: GERD, Hiatal Hernia, Other (See Below) Other Gastrointestinal History: Schatzki's ring 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 History: Reports: Chronic Renal Insuffiency, Other (See Below) Other 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 History: Renal stent. Renal artery stenosis [employer] History: Reports: Musculoskeletal History: Reports: Osteoarthritis Other Musculoskeletal History: Fractured left ankle x3 Neurological History: Reports: None Psychiatric History: Reports: None Endocrine/Metabolic History: Reports: Diabetes, Type II Hematologic History: Reports: None Immunologic History: Reports: None Oncologic (Cancer) History: Reports: None Dermatologic History: Reports: None - Infectious Disease History Infectious Disease History: Reports: Chicken Pox, Measles, Mumps - Past Surgical History Head Surgeries/Procedures: Reports: None HEENT Surgical History: Reports: Cataract Surgery Cardiovascular Surgical History: Reports: Coronary Artery Bypass, Coronary Artery Stent Other Cardiovascular Surgeries/Procedures: Electrocardiogram Respiratory Surgical History: Reports: None GI Surgical History: Reports: EGD, Esophageal Dilatation Female Surgical History: Reports: None Endocrine Surgical History: Reports: None Neurological Surgical History: Reports: None Musculoskeletal Surgical History: Reports: Other (See Below) Other Musculoskeletal Surgeries/Procedures:: Left knee surgery Oncologic Surgical History: Reports: None Dermatological Surgical History: Reports: None Social & Family History - Family History Family Medical History: No Pertinent Family History Cardiac: Reports: High Cholesterol, Hypertension, [place] : Reports: Dialysis Musculoskeletal: Reports: Arthritis Endocrine/Metabolic: Reports: Diabetes, type II Oncologic: Reports: Lung - Tobacco Use Tobacco Use Status *Q: Never Tobacco User - Caffeine Use Caffeine Use: Reports: Coffee - Recreational Drug Use Recreational Drug Use: No - Living Situation & Occupation Living situation: Reports: with Family Occupation: Retired ED ROS GENERAL - Review of Systems Review Of Systems: Comprehensive ROS is negative, except as noted in HPI. ED EXAM, GENERAL - Physical Exam Exam: See Below Exam Limited By: No Limitations General Appearance: Alert, No Apparent Distress, Thin Eye Exam: Bilateral Eye: EOMI, Normal Inspection, PERRL (3mm) Ears: Normal External Exam, Normal Canal, Hearing Grossly Normal, Normal TMs Nose: Normal Inspection, Normal Mucosa Throat/Mouth: Normal Inspection, Normal Oropharynx, Normal Voice, No Airway Compromise Head: Atraumatic, Other Neck: Normal Inspection, Supple, Non-Tender, Full Range of Motion. No: Lymphadenopathy (L), Lymphadenopathy (R) Respiratory/Chest: No Respiratory Distress, Lungs Clear, Normal Breath Sounds, No Accessory Muscle Use, Chest Non-Tender. No: Crackles, Rales, Rhonchi, Wheezing, Stridor Cardiovascular: Normal Peripheral Pulses, Regular Rate, Rhythm, No Edema, No Gallop, No JVD, No Murmur, No Rub Peripheral Pulses: 2+: Radial (L), Radial (R) GI/Abdominal: Soft, No Distention, No Abnormal Bruit, No Mass, Pelvis Stable, Tender (With cough to RLQ), Abnormal Bowel Sounds (Hyperactive) (Female) Exam: Deferred Rectal (Female) Exam: Deferred Back Exam: Normal Inspection, Full Range of Motion. No: CVA Tenderness (L), CVA Tenderness (R) Extremities: Normal Inspection, Normal Range of Motion, Non-Tender, No Pedal Juan ma, Normal Capillary Refill Neurological: Alert, Oriented, CN II-XII Intact, Normal Cognition, Normal Gait, No Motor/Sensory Deficits Psychiatric: Normal Affect, Normal Mood Skin Exam: Warm, Dry, Intact, Normal Color, No Rash. No: Cyanosis, Jaundice, Mottled, Pallor #1 Interpretation Comparison: Change From Previous EKG #2 Interpretation W[place]/PQ Interval: 0.171 Course - Vital Signs Last Recorded V/S: Last Vital Signs Temp 97.2 F 03/28/21 10:03 Pulse 81 03/28/21 10:03 Resp 16 03/28/21 10:03 BP 118/70 03/28/21 10:03 Pulse Ox 98 03/28/21 10:03 - Orders/Labs/Meds Orders: Active Orders 24 hr Category Date Time Status CULTURE URINE [RM] Stat Lab 03/28/21 12:34 Results Labs: Laboratory Tests 03/28/21 03/28/21 03/28/21 Range/Units 10:05 10:05 10:05 WBC 8.7 (5.0-10.0) 10^3/uL RBC 4.31 (4.2-5.4) 10^6/uL Hgb 12.5 (12.0-16.0) g/dL Hct 35.7 L (37.0-47.0) % MCV 82.8 (80-100) fL MCH 29.0 (27.0-34.0) pg MCHC 35.0 (33.0-35.0) g/dL Plt Count 295 (150-450) 10^3/uL Neut % (Auto) 71.8 (42.2-75.2) % Lymph % (Auto) 12.1 L (20.5-50.1) % [place] % (Auto) 15.7 H (2-8) % Eos % (Auto) 0.3 L (1.0-3.0) % Baso % (Auto) 0.1 (0.0-1.0) % Add Manual Diff Yes Neutrophils % (Manual) 68 (42-75) % Band Neutrophils % 7 % Lymphocytes % (Manual) 17 L (20-50) % Monocytes % (Manual) 8 (2-8) % Polychromasia Sodium 123 L (136-145) mmol/L Potassium 3.8 (3.5-5.1) mmol/L Chloride 87 L (98-107) mmol/L Carbon Dioxide 28 (21-32) mmol/L Anion Gap 11.8 (7-13) mEq/L BUN 18 (7-18) mg/dL Creatinine 1.37 H (0.55-1.02) mg/dL Est Cr Clr Drug Dosing 28.83 mL/min Estimated GFR (MDRD) 38 BUN/Creatinine Ratio 13.1 (No establ ref range) Glucose 183 H (70-99) mg/dL Lactic Acid 1.4 (0.4-2.0) mmol/L Calcium 9.2 (8.5-10.1) mg/dL Total Bilirubin 0.7 (0.2-1.0) mg/dL AST 17 (15-37) U/L ALT 23 (14-59) U/L Alkaline Phosphatase 86 (46-116) U/L Troponin I High Sens 11 (<=51) pg/mL C-Reactive Protein 13.5 H (0.0-0.9) mg/dL B-Natriuretic Peptide 123 H (0-100) pg/ml Total Protein 7.7 (6.4-8.2) g/dL Albumin 2.8 L (3.4-5.0) g/dL Globulin 4.9 Albumin/Globulin Ratio 0.57 Urine Color (YELLOW) Urine Appearance (CLEAR) Urine pH (5.0-9.0) Ur Specific Dawson (1.005-1.030) Urine Protein (NEGATIVE) Urine Glucose (UA) (NEGATIVE) Urine Ketones (NEGATIVE) Urine Occult Blood (NEGATIVE) Urine Nitrite (NEGATIVE) Urine Bilirubin (NEGATIVE) Urine Urobilinogen (0.2-1.0) mg/dL Ur Leukocyte Esterase (NEGATIVE) Urine RBC (0-5) /HPF Urine WBC (0-5/HPF) /HPF Ur Epithelial Cells (NOT SEEN) /HPF Urine Bacteria (0-FEW/HPF) /HPF SARS-CoV-2 RNA (KIYA) (NEGATIVE) 03/28/21 03/28/21 Range/Units 10:20 12:34 WBC (5.0-10.0) 10^3/uL RBC (4.2-5.4) 10^6/uL Hgb (12.0-16.0) g/dL Hct (37.0-47.0) % MCV (80-100) fL MCH (27.0-34.0) pg MCHC (33.0-35.0) g/dL Plt Count (150-450) 10^3/uL Neut % (Auto) (42.2-75.2) % Lymph % (Auto) (20.5-50.1) % [place] % (Auto) (2-8) % Eos % (Auto) (1.0-3.0) % Baso % (Auto) (0.0-1.0) % Add Manual Diff Neutrophils % (Manual) (42-75) % Band Neutrophils % % Lymphocytes % (Manual) (20-50) % Monocytes % (Manual) (2-8) % Polychromasia Sodium (136-145) mmol/L Potassium (3.5-5.1) mmol/L Chloride (98-107) mmol/L Carbon Dioxide (21-32) mmol/L Anion Gap (7-13) mEq/L BUN (7-18) mg/dL Creatinine (0.55-1.02) mg/dL Est Cr Clr Drug Dosing mL/min Estimated GFR (MDRD) BUN/Creatinine Ratio (No establ ref range) Glucose (70-99) mg/dL Lactic Acid (0.4-2.0) mmol/L Calcium (8.5-10.1) mg/dL Total Bilirubin (0.2-1.0) mg/dL AST (15-37) U/L ALT (14-59) U/L Alkaline Phosphatase (46-116) U/L Troponin I High Sens (<=51) pg/mL C-Reactive Protein (0.0-0.9) mg/dL B-Natriuretic Peptide (0-100) pg/ml Total Protein (6.4-8.2) g/dL Albumin (3.4-5.0) g/dL Globulin Albumin/Globulin Ratio Urine Color Yellow (YELLOW) Urine Appearance Cloudy (CLEAR) Urine pH 6.0 (5.0-9.0) Ur Specific Dawson 1.010 (1.005-1.030) Urine Protein 100 H (NEGATIVE) Urine Glucose (UA) 100 H (NEGATIVE) Urine Ketones 15 H (NEGATIVE) Urine Occult Blood Small H (NEGATIVE) Urine Nitrite Negative (NEGATIVE) Urine Bilirubin Negative (NEGATIVE) Urine Urobilinogen 1.0 (0.2-1.0) mg/dL Ur Leukocyte Esterase Large H (NEGATIVE) Urine RBC 5-10 H (0-5) /HPF Urine WBC >100 H (0-5/HPF) /HPF Ur Epithelial Cells Few (NOT SEEN) /HPF Urine Bacteria Moderate H (0-FEW/HPF) /HPF SARS-CoV-2 RNA (KIYA) Negative (NEGATIVE) Meds: Medications Discontinued Medications Generic Name Dose Route Start Last Admin Trade Name Freq PRN Reason Stop Dose Admin Benzocaine/Menthol 1 lozenge 03/28/21 11:09 03/28/21 11:37 Benzocaine/Cetylpyridinium/Menthol Lozenge MUCMEM 03/28/21 11:10 1 lozenge ONETIME ONE Administration Benzonatate 100 mg 03/28/21 11:08 03/28/21 11:27 Benzonatate 100 Mg Cap PO 03/28/21 11:09 100 mg ONETIME ONE Administration Sodium Chloride 1,000 mls @ 999 mls/hr 03/28/21 11:08 03/28/21 11:27 Normal Saline IV 03/28/21 12:08 999 mls/hr .BOLUS ONE Administration - Radiology Interpretation Free Text/Narrative:: [facility] Final Radiology Report Call: [phone] assistance Online chat: [email or web address] Name: ANNAMARIA ROLDAN Age: 71Years F Date: 03/28/2021 SSN: -- : 1950 Study: CR CHEST 1V FRONTAL Requesting Physician: Radha Bernabe Images: 1 Addl Studies: Provided Clinical History: Shortness of breath; Wheezing Contrast: Contrast Medium: Contrast Amount: Contrast Method: CONFIDENTIALITY STATEMENT This report is intended only for use by the referring physician, and only in accordance with law. If you received this in error, call [phone]. Page 1 of 1 PROCEDURE INFORMATION: Exam: XR Chest Exam date and time: 03/28/2021 10:28 AM Age: 71 years old Clinical indication: Shortness of breath and wheezing; Additional info: Shortness of breath; Wheezing TECHNIQUE: Imaging protocol: XR of the chest. Views: 1 view. COMPARISON: CR Chest 1V Frontal 11/10/2020 1:54 AM FINDINGS: Lungs: Unremarkable. No consolidation. Pleural spaces: Unremarkable. No pleural effusion. No pneumothorax. Heart/Mediastinum: Unremarkable. No cardiomegaly. Bones/joints: Median sternotomy wires IMPRESSION: No acute cardiopulmonary findings. Thank you for allowing us to participate in the care of your patient. Dictated and Authenticated by: Eddie Jackson MD 03/28/2021 10:47 AM Central Time ([place] & [place]) - Re-Assessments/Exams Free Text/Narrative Re-Assessment/Exam: 03/28/21 Findings of examination, lab work, and imaging reviewed with patient. Will treat viral URI with Tessalon Perles and Cepacol Lozenges. Will treat UTI with Macrobid. Discussed supportive cares for viral URI and UTI. Patient instructed to follow up with PCP regarding today's visit. Red flag signs and symptoms which would warrant reevaluation reviewed. Patient verbalized understanding and agreement with the plan of care. Departure - Departure Time of Disposition: 13:34 Disposition: Home, Self-Care 01 Condition: Fair Clinical Impression: Hyponatremia Upper respiratory infection Qualifiers: URI type: unspecified viral URI Qualified Code(s): J06.9 - Acute upper respiratory infection, unspecified Urinary tract infection Qualifiers: Urinary tract infection type: acute cystitis Hematuria presence: without hematuria Qualified Code(s): N30.00 - Acute cystitis without hematuria - Discharge Information *PRESCRIPTION DRUG MONITORING PROGRAM REVIEWED*: Not Applicable *COPY OF PRESCRIPTION DRUG MONITORING REPORT IN PATIENT GARTH: Not Applicable Instructions: Upper Respiratory Infection, Adult, Hyponatremia, Urinary Tract Infection, Adult Referrals: PCP,None [Primary Care Provider] - Forms: ED Department Discharge Additional Instructions: Rx: Macrobid Rx: Tessalon Perles Rx: Cepacol 1.) Take all of your antibiotic until gone, even as symptoms improve. 2.) You may take acetaminophen (Tylenol) 650mg-1000mg every six hours as pain persists. 3.) Eat small, snack like meals (like chips, popcorn, crackers) to prevent nausea and increase sodium. 4.) Follow up with your primary care provider in 2-3 days, or return to the emergency department with any persistent or worsening symptoms despite medications. - My Orders Last 24 Hours: My Active Orders 03/28/21 12:34 CULTURE URINE [RM] Stat - Assessment/Plan Last 24 Hours: My Active Orders 03/28/21 12:34 CULTURE URINE [RM] Stat
[2021-03-28] MEDS ORDERED: Sodium Chloride 0.9% 1,000 ML IV ONE (11:08)
[2021-03-28] MEDS ORDERED: Benzonatate 100 MG Cap PO ONE (11:08)
[2021-03-28] MEDS ORDERED: Benzocaine/Cetylpyridinium/Menthol Lozenge MUCMEM ONE (11:09)
== END 2021-03-28 13:42 | disposition home or self-care (01) ==
LOC: DL.ED 09:44
DX: J06.9 Acute upper respiratory infection, unspecified (principal); N30.00 Acute cystitis without hematuria; E87.1 Hypo-osmolality and hyponatremia; I25.10 Atherosclerotic heart disease of native coronary artery without angina pectoris; E78.00 Pure hypercholesterolemia, unspecified; I12.9 Hypertensive chronic kidney disease with stage 1 through stage 4 chronic kidney disease, or unspecified chronic kidney disease; E11.22 Type 2 diabetes mellitus with diabetic chronic kidney disease; N18.9 Chronic kidney disease, unspecified; K21.9 Gastro-esophageal reflux disease without esophagitis; I25.2 Old myocardial infarction; Z91.030 Bee allergy status; Z91.018 Allergy to other foods; Z88.8 Allergy status to other drugs, medicaments and biological substances; Z88.5 Allergy status to narcotic agent; Z20.822 Contact with and (suspected) exposure to COVID-19; Z95.1 Presence of aortocoronary bypass graft
CPT/HCPCS: 36415; 71045; 80053; 81001; 83605; 83880; 84484; 85025; 86140; 87086; 87088; 87186; 87635; 99284; A9270; J7030; U0002

== ENCOUNTER 2022-03-27 00:57 | Emergency (ER) | payer OTHER ==
[2022-03-27] MEDS ORDERED: Dexamethasone 4 MG/ML SDV IVPUSH ONE (01:22)
[2022-03-27] MEDS ORDERED: Benzonatate 100 MG Cap PO ONE (01:45)
[2022-03-27 02:21] VITALS: BP 181/88; PULSE 86
[2022-03-27 02:32] LABS: CORONAVIRUS COVID-19 NAA NEGATIVE (NEGATIVE)
[2022-03-27 02:35] LABS: ANION GAP 11.5 mEq/L (7-13)
[2022-03-27] MEDS ORDERED: Albuterol 0.083% 2.5 MG/3 ML Neb Soln NEB ONE ×2 (02:36→04:59)
[2022-03-27] MEDS ORDERED: Magnesium Sulfate/Water 2 GM in Premix Bag 1 BAG IV ONE (02:49)
[2022-03-27] MEDS ORDERED: Glucagon,Human Recombinant 1 MG Vial IM PRN (02:49)
[2022-03-27] MEDS ORDERED: Sodium Chloride 0.9% 1,000 ML IV ONE (02:49)
[2022-03-27] MEDS ORDERED: 50% Dextrose in Water 50 ML Syringe IVPUSH PRN (02:49)
[2022-03-27] MEDS ORDERED: Insulin Regular, Human 100 Units/ML 3 ML Vial IV ONE (02:49)
[2022-03-27] MEDS ORDERED: Amoxicillin/Clavulanate K 875-125 MG Tab PO ONE (02:53)
[2022-03-27] MEDS ORDERED: guaiFENesin/Dextromethorphan 100-10 MG/5 ML Soln 5 ML Cup PO ONE (03:59)
[2022-03-27] MEDS ORDERED: guaiFENesin 100 MG/5 ML Soln 5 ML UD Cup PO ONE (04:19)
== END 2022-03-27 05:29 | disposition home or self-care (01) ==
LOC: DL.ED 00:57
DX: J40 Bronchitis, not specified as acute or chronic (principal); N30.00 Acute cystitis without hematuria; E83.42 Hypomagnesemia; E11.65 Type 2 diabetes mellitus with hyperglycemia; E87.1 Hypo-osmolality and hyponatremia; I25.10 Atherosclerotic heart disease of native coronary artery without angina pectoris; I10 Essential (primary) hypertension; I25.2 Old myocardial infarction; Z91.018 Allergy to other foods; Z88.8 Allergy status to other drugs, medicaments and biological substances; Z91.030 Bee allergy status; Z79.899 Other long term (current) drug therapy; Z79.82 Long term (current) use of aspirin; Z79.4 Long term (current) use of insulin; Z20.822 Contact with and (suspected) exposure to COVID-19
CPT/HCPCS: 0240U; 36415; 71045; 80053; 81001; 82947; 83605; 83690; 83735; 83880; 84443; 84484; 85025; 85379; 87040; 87086; 87088; 87186; 93005; 93010; 96365; 96366; 96375; 99284; A9270; J1100; J1815; J3475; J7030; J7613-GY

== ENCOUNTER 2022-08-20 15:49 | Emergency (ER) | payer MEDICARE, OTHER ==
[2022-08-20] MEDS ORDERED: Ondansetron 4 MG Tab.DIS PO ONE (15:50)
[2022-08-20 16:02] VITALS: BP 179/77; PULSE 68
[2022-08-20] MEDS ORDERED: Sodium Chloride 0.9% 10 ML Syringe FLUSH PRN (16:09)
[2022-08-20 16:51] LABS: ANION GAP 13.5 mEq/L (7-13); CHLORIDE,CL 98 mmol/L (98-107); SODIUM,NA 131 mmol/L (136-145)
[2022-08-20 16:58] LABS: ESTIMATED GFR 48 mL/min (>=60)
[2022-08-20] MEDS ORDERED: Ondansetron 4 MG Tab.DIS ONE (17:44)
[2022-08-20 18:20] LABS: RESPIRATORY SYNCYTIAL VIR NAA NEGATIVE (NEGATIVE)
[2022-08-20 18:23] LABS: CORONAVIRUS COVID-19 NAA POSITIVE (NEGATIVE)
== END 2022-08-20 17:50 | disposition home or self-care (01) ==
LOC: DL.ED 15:49
DX: U07.1 COVID-19 (principal); R11.2 Nausea with vomiting, unspecified; I25.10 Atherosclerotic heart disease of native coronary artery without angina pectoris; E78.00 Pure hypercholesterolemia, unspecified; E11.22 Type 2 diabetes mellitus with diabetic chronic kidney disease; I12.9 Hypertensive chronic kidney disease with stage 1 through stage 4 chronic kidney disease, or unspecified chronic kidney disease; N18.9 Chronic kidney disease, unspecified; I25.2 Old myocardial infarction; K21.9 Gastro-esophageal reflux disease without esophagitis; Z79.4 Long term (current) use of insulin; Z86.16 Personal history of COVID-19; Z91.030 Bee allergy status; Z91.018 Allergy to other foods; Z88.8 Allergy status to other drugs, medicaments and biological substances; Z79.82 Long term (current) use of aspirin; Z79.899 Other long term (current) drug therapy
CPT/HCPCS: 0241U; 36415; 71045; 80053; 83605; 84484; 85025; 86140; 93005; 99285; A9270; 93010; 99284

== ENCOUNTER 2024-06-13 06:34 | Day surgery (SDC) | payer MEDICARE, OTHER ==
[2024-06-13] MEDS ORDERED: fentaNYL 100 MCG/2 ML SDV IV ONE (06:46)
[2024-06-13] MEDS ORDERED: fentaNYL 100 MCG/2 ML SDV ONE (06:46)
[2024-06-13] MEDS ORDERED: Midazolam 1 MG/ML 2 ML SDV ONE (06:46)
[2024-06-13] MEDS ORDERED: Midazolam 1 MG/ML 2 ML SDV IV ONE (06:46)
[2024-06-13] MEDS: Dextrose 5%-0.45% NaCl 1,000 ML IV SCH (06:53)
[2024-06-13] MEDS: fentaNYL 100 MCG/2 ML SDV IV ONE ×2 (07:05→07:06)
[2024-06-13] MEDS: Midazolam 1 MG/ML 2 ML SDV IV ONE ×2 (07:06→07:07)
[2024-06-13 08:58] VITALS: BP 143/60; PULSE 60
== END 2024-06-13 10:20 | disposition home or self-care (01) ==
LOC: DL.ENDO 06:34
PROVIDERS: ATTEND Internal Medicine Gastroenterology
DX: K29.50 Unspecified chronic gastritis without bleeding (principal)
CPT/HCPCS: J2250; J3010; J7799

== ENCOUNTER 2024-07-30 15:49 | Emergency (ER) | payer SELFPAY ==
[2024-07-30] MEDS: amLODIPine 5 MG Tab PO ONE (16:43)
[2024-07-30] MEDS: Losartan 50 MG Tab PO ONE (16:44)
[2024-07-30 16:55] LABS: BASOPHILS PERCENT AUTO 0.3 % (0.0-1.0); EOSINOPHILS PERCENT AUTO 1.7 % (1.0-3.0); HEMATOCRIT 31.1 % (37.0-47.0); HEMOGLOBIN 10.8 g/dL (12.0-16.0); LYMPHOCYTES PERCENT AUTO 28.5 % (20.5-50.1); MEAN CORPUSCULAR HEMOGLOBIN 30.3 pg (27.0-34.0); MEAN CORPUSCULAR HGB CONC 34.7 g/dL (33.0-35.0); MEAN CORPUSCULAR VOLUME 87.1 fL (80-100); MONOCYTES PERCENT AUTO 7.2 % (2-8); NEUTROPHILS PERCENT AUTO 62.3 % (42.2-75.2); PLATELET COUNT,PLT 221 10^3/uL (150-450); RED BLOOD CELL COUNT 3.57 10^6/uL (4.2-5.4); WHITE BLOOD CELL COUNT,WBC 5.7 10^3/uL (5.0-10.0)
[2024-07-30 17:11] LABS: APPEARANCE,URINE CLEAR (CLEAR); BILIRUBIN,URINE NEGATIVE (NEGATIVE); COLOR,URINE YELLOW (YELLOW); GLUCOSE,URINE NEGATIVE (NEGATIVE); KETONES,URINE NEGATIVE (NEGATIVE); LEUKOCYTE ESTERASE,URINE NEGATIVE (NEGATIVE); NITRITE,URINE NEGATIVE (NEGATIVE); OCCULT BLOOD,URINE TRACE-INTACT (NEGATIVE); PH,URINE 5.5 (5.0-9.0); PROTEIN,URINE 100 (NEGATIVE); UROBILINOGEN,URINE 0.2 mg/dL (0.2-1.0)
[2024-07-30 17:14] LABS: A/G RATIO 0.64; ANION GAP 12.4 mEq/L (7-13); BILIRUBIN TOTAL 0.6 mg/dL (0.2-1.0); BUN/CREATININE RATIO 10.8 (No establ ref range); CALCIUM 8.8 mg/dL (8.5-10.1); CREATININE 1.2 mg/dL (0.55-1.02); EST CRCL DRUG DOSING (CG) 31.51 mL/min; POTASSIUM,K 4.4 mmol/L (3.5-5.1); PROTEIN TOTAL,TP 7.7 g/dL (6.4-8.2)
[2024-07-30 17:25] VITALS: BP 175/68; PULSE 58
[2024-07-30 17:47] LABS: BACTERIA,URINE RARE /HPF (0-FEW/HPF); EPITHELIAL CELLS,URINE RARE /HPF (NOT SEEN); RBC,URINE 0-5 /HPF (0-5); WBC,URINE 0-5 /HPF (0-5/HPF)
== END 2024-07-30 17:53 | disposition home or self-care (01) ==
LOC: DL.ED 15:49
DX: R42 Dizziness and giddiness (principal); I25.10 Atherosclerotic heart disease of native coronary artery without angina pectoris; I25.2 Old myocardial infarction; I12.9 Hypertensive chronic kidney disease with stage 1 through stage 4 chronic kidney disease, or unspecified chronic kidney disease; N18.9 Chronic kidney disease, unspecified; J45.909 Unspecified asthma, uncomplicated; K21.9 Gastro-esophageal reflux disease without esophagitis; E11.22 Type 2 diabetes mellitus with diabetic chronic kidney disease; Z86.16 Personal history of COVID-19; Z95.5 Presence of coronary angioplasty implant and graft; Z88.8 Allergy status to other drugs, medicaments and biological substances; Z91.030 Bee allergy status; Z91.018 Allergy to other foods; Z79.82 Long term (current) use of aspirin; Z79.4 Long term (current) use of insulin; Z79.899 Other long term (current) drug therapy
CPT/HCPCS: 36415; 80053; 81001; 82947; 85025; 93005; 93010; 99284; A9270-GY

== ENCOUNTER 2025-01-22 10:32 | Emergency (ER) | payer SELFPAY ==
[2025-01-22] MEDS: Take Home: Cephalexin 500 MG Cap, 6 Cap Pack PO ONE (11:34)
[2025-01-22 12:28] VITALS: BP 147/66; PULSE 58
== END 2025-01-22 11:30 | disposition home or self-care (01) ==
LOC: DL.ED 10:32
DX: L03.211 Cellulitis of face (principal); I25.10 Atherosclerotic heart disease of native coronary artery without angina pectoris; I25.2 Old myocardial infarction; I12.9 Hypertensive chronic kidney disease with stage 1 through stage 4 chronic kidney disease, or unspecified chronic kidney disease; N18.9 Chronic kidney disease, unspecified; K21.9 Gastro-esophageal reflux disease without esophagitis; E11.22 Type 2 diabetes mellitus with diabetic chronic kidney disease; Z86.16 Personal history of COVID-19; Z95.5 Presence of coronary angioplasty implant and graft; Z88.8 Allergy status to other drugs, medicaments and biological substances; Z91.018 Allergy to other foods; Z91.030 Bee allergy status; Z79.82 Long term (current) use of aspirin; Z79.4 Long term (current) use of insulin; Z79.899 Other long term (current) drug therapy
CPT/HCPCS: 99283; A9270

== ENCOUNTER 2025-03-09 20:41 | Emergency (ER) | payer OTHER ==
[2025-03-09 21:35] LABS: BASOPHILS PERCENT AUTO 0.7 % (0.0-1.0); EOSINOPHILS PERCENT AUTO 3.6 % (1.0-3.0); LYMPHOCYTES PERCENT AUTO 31.1 % (20.5-50.1); MONOCYTES PERCENT AUTO 9.7 % (2-8); NEUTROPHILS PERCENT AUTO 54.9 % (42.2-75.2); PLATELET COUNT,PLT 202 10^3/uL (150-450); RED BLOOD CELL COUNT 3.51 10^6/uL (4.2-5.4); WHITE BLOOD CELL COUNT,WBC 5.8 10^3/uL (5.0-10.0)
[2025-03-09 21:41] LABS: APPEARANCE,URINE CLEAR (CLEAR); GLUCOSE,URINE NEGATIVE (NEGATIVE); OCCULT BLOOD,URINE SMALL (NEGATIVE)
[2025-03-09 21:57] LABS: A/G RATIO 0.9; ALANINE AMINOTRANSFERASE,ALT 17.0 U/L (14-59); ASPARTATE AMNIOTRANSFERASE,AST 18.0 U/L (15-37); BILIRUBIN TOTAL 0.4 mg/dL (0.2-1.0); BLOOD UREA NITROGEN,BUN 16.0 mg/dL (7-18); CARBON DIOXIDE,CO2 28.0 mmol/L (21-32); CHLORIDE,CL 99.0 mmol/L (98-107); CREATININE 1.22 mg/dL (0.55-1.02); EST CRCL DRUG DOSING (CG) 30.99 mL/min; GLUCOSE RANDOM 133.0 mg/dL (70-99); LACTIC ACID 0.7 mmol/L (0.4-2.0); POTASSIUM,K 3.8 mmol/L (3.5-5.1); PROTEIN TOTAL,TP 7.3 g/dL (6.4-8.2); SODIUM,NA 133.0 mmol/L (136-145)
[2025-03-09 21:58] LABS: ESTIMATED GFR 47.0 mL/min (>=60)
[2025-03-09 22:00] LABS: EPITHELIAL CELLS,URINE FEW /HPF (NOT SEEN)
[2025-03-09] MEDS: hydrALAZINE 20 MG/ML SDV IVPUSH ONE (22:50)
[2025-03-09 23:31] VITALS: BP 149/83; PULSE 71
== END 2025-03-09 23:30 | disposition home or self-care (01) ==
LOC: DL.ED 20:41
DX: I16.0 Hypertensive urgency (principal); E78.00 Pure hypercholesterolemia, unspecified; I25.10 Atherosclerotic heart disease of native coronary artery without angina pectoris; E11.9 Type 2 diabetes mellitus without complications; Z88.8 Allergy status to other drugs, medicaments and biological substances; Z91.030 Bee allergy status; Z91.018 Allergy to other foods; Z79.82 Long term (current) use of aspirin; Z79.899 Other long term (current) drug therapy; Z79.4 Long term (current) use of insulin; Z86.16 Personal history of COVID-19
CPT/HCPCS: 36415; 71045; 80053; 81001; 83605; 83690; 83735; 84484; 85025; 93005; 96361; 96374; 99285; J0360; J7030